=== PATIENT | female | born 1930 | race Caucasian/White ===

== ENCOUNTER 2016-11-25 17:33 | Inpatient (IN) | payer MEDICARE, BC ==
--- NOTE | 2016-11-25 17:38 | EDM.PDOC ---
ED HPI GENERAL MEDICAL PROBLEM - General Chief Complaint: Abdominal Pain Stated Complaint: PT HAS STOMACH PAINS Time Seen by Provider: 11/25/16 17:33 Source of Information: Reports: Patient History Limitations: Reports: No limitations - History of Present Illness INITIAL COMMENTS - FREE TEXT/NARRATIVE: HISTORY AND PHYSICAL: History of present illness: [Patient comes to the emergency room via ambulance. Son Is present at the bedside. She lives independently in her home. She complains of severe lower abdominal pain and pain in her low back. The pain came on suddenly at 1 PM today. Normally has a bowel movement every day but today was only able to pass a very small amount of stool. She's currently taking hydrocodone for osteoarthritis. Son admits that she does not eat or drink very much during the day. [employer] has brought the patient meals in the past but she doesn't like them and refuses to eat them. In the past, she has refused assisted living and short- term stay at [facility]. She has not had fever or chills. She has not had recent illness or infection. Denies recent falls and injuries. No chest pain shortness of breath or difficulty breathing. History of appendectomy and right total hip replacement. History of osteoarthritis, peripheral neuropathy, pacemaker, GERD, anxiety and depression. ] Review of systems: As per history of present illness and below otherwise all systems reviewed and negative. Past medical history: As per history of present illness and as reviewed below otherwise noncontributory. Surgical history: As per history of present illness and as reviewed below otherwise noncontributory. Social history: No reported history of drug or alcohol abuse. Family history: As per history of present illness and as reviewed below otherwise noncontributory. Physical exam: General: Well-developed, cachectic in appearance, frail elderly female in no acute distress. HEENT: Atraumatic, normocephalic. Oral mucous membranes are pink but dry. negative for conjunctival pallor or scleral icterus. Lungs: Clear to auscultation, breath sounds equal bilaterally. Heart: S1S2, regular rate rhythm. Abdomen: Bowel sounds are present in all 4 quadrants but quiet. Abdomen soft and nondistended. She is tender with palpation over entire lower abdomen. No masses guarding or rebound. Pelvis: Stable nontender. Genitourinary: Deferred. Rectal: Deferred. Extremities: Atraumatic, no swelling or cyanosis of feet or lower legs. Neurovascular unremarkable. Neuro: Awake, alert, oriented. Motor and sensory unremarkable throughout. Exam nonfocal. Diagnostics: [CBC, CMP, UA, abdominal x-ray, CT abdomen and pelvis without contrast] Therapeutics: [1 L normal saline IV, Zofran 4 mg IV, morphine 2 mg IV x 2 doses, Dilaudid 0.5 mg IV] Impression: [Abdominal pain] Plan: [Lab work is largely unremarkable other than a moderate amount of blood in her urinalysis. Abdominal x-ray shows gas but no obstruction. Abdominal CT shows no kidney stones or hydronephrosis. Colonic diverticulosis and constipation is appreciated on CT of abdomen. Patient's care is reviewed with the hospitalist. Patient will be admitted to the medical surgical floor under the care of Dr. Amor. This is discussed with patient and her family. All of their questions are answered and concerns are addressed. Definitive disposition and diagnosis as appropriate pending reevaluation and review of above. Abdominal Pain Score (Numeric/FACES): 10 - Related Data Allergies Allergy/AdvReac Type Severity Reaction Status Date / Time No Known Allergies Allergy Verified 11/25/16 17:38 Home Meds: Home Meds Gabapentin [Neurontin] 100 mg PO QID 09/15/14 [History] Hydrocodone/Acetaminophen [Lortab 5-325 mg Tablet] 1 tab PO Q6H PRN 09/15/14 [ History] Aspirin [Adult Low Dose Aspirin EC] 81 mg PO DAILY 03/27/15 [History] Erythromycin Base [Erythromycin 0.5% Ophth Oint] 1 applic OP Q12H 03/27/15 [ History] Polyethylene Glycol 3350 [Gavilax] 8.5 gm PO DAILY 03/27/15 [History] Sertraline [Zoloft] 50 mg PO DAILY 03/27/15 [History] Cholecalciferol (Vitamin D3) [Vitamin D3] 1,000 units PO DAILY 03/19/16 [History ] Acetaminophen [Tylenol] 650 mg PO Q4H PRN #0 tablet 03/23/16 [Rx] Ibuprofen [Motrin] 200 mg PO BID tablet 03/23/16 [Rx] Nitroglycerin [IJP: Nitroglycerin] 0.4 mg SL Q5M PRN #1 bottle 03/23/16 [Rx] Simethicone 80 mg PO TID PRN #0 tab.chew 03/23/16 [Rx] Metoprolol Succinate [Toprol XL] 1 tab PO DAILY 11/25/16 [History] Past Medical History HEENT History: Reports: Other (see below) Other HEENT History: Dry Eye Cardiovascular History: Reports: Pacemaker Respiratory History: Reports: None Gastrointestinal History: Reports: GERD 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: Musculoskeletal History: Reports: Osteoarthritis, RA Neurological History: Reports: Neuropathy, peripheral Psychiatric History: Reports: Anxiety, Depression Hematologic History: Reports: None Oncologic (Cancer) History: Reports: None - Infectious Disease History Infectious Disease History: Reports: Chicken pox, Influenza, Measles - Past Surgical History Other Musculoskeletal Surgeries/Procedures:: right hip replacement Social & Family History - Family History Family Medical History: Noncontributory HEENT: Reports: Impaired vision Cardiac: Reports: [place] Oncologic: Reports: Colon - Tobacco Use Smoking Status *Q: Never Smoker Second Hand Smoke Exposure: No - Alcohol Use Days Per Week of Alcohol Use: 0 - Recreational Drug Use Recreational Drug Use: No ED ROS GENERAL - Review of Systems Review Of Systems: ROS reveals no pertinent complaints other than HPI. ED EXAM, GENERAL - Physical Exam Exam: See Below Course - Vital Signs Last Recorded V/S: Last Vital Signs Temp 97.5 F 11/25/16 20:43 Pulse 65 11/25/16 20:43 Resp 20 11/25/16 20:43 BP 139/63 11/25/16 20:43 Pulse Ox 92 L 11/25/16 20:43 - Orders/Labs/Meds Orders: Active Orders 24 hr Category Date Time Status Abdomen 2V AP Flat Upright [CR] Stat Exams 11/25/16 17:35 Taken Abdomen Pelvis wo Cont [CT] Stat Exams 11/25/16 20:12 Ordered HYDROmorphone [Dilaudid] Med 11/25/16 21:34 Once 0.5 mg IVPUSH ONETIME ONE Sodium Chloride 0.9% [Normal Saline] 1,000 ml Med 11/25/16 18:43 Active IV STAT Medication Orders Sodium Chloride (Normal Saline) 1,000 mls @ 250 mls/hr IV STAT ONE Stop: 11/25/16 22:42 Last Admin: 11/25/16 19:12 Dose: 250 mls/hr Labs: Laboratory Tests 11/25/16 11/25/16 11/25/16 Range/Units 17:52 17:52 17:52 WBC 8.35 (4.0-11.0) K/uL RBC 3.95 L (4.30-5.90) M/uL Hgb 12.4 (12.0-16.0) g/dL Hct 37.2 (36.0-46.0) % MCV 94.2 (80.0-98.0) fL MCH 31.4 (27.0-32.0) pg MCHC 33.3 (31.0-37.0) g/dL RDW Std Deviation 46.4 (28.0-62.0) fl RDW Coeff of Lissa 13 (11.0-15.0) % Plt Count 234 (150-400) K/uL MPV 8.90 (7.40-12.00) fL Neut % (Auto) 77.9 (48.0-80.0) % Lymph % (Auto) 14.7 L (16.0-40.0) % Faulkner % (Auto) 4.9 (0.0-15.0) % Eos % (Auto) 1.8 (0.0-7.0) % Baso % (Auto) 0.7 (0.0-1.5) % Neut # 6.5 H (1.4-5.7) K/uL Lymph # 1.2 (0.6-2.4) K/uL Faulkner # 0.4 (0.0-0.8) K/uL Eos # 0.2 (0.0-0.7) K/uL Baso # 0.1 (0.0-0.1) K/uL Nucleated RBC % 0.0 /100WBC Nucleated RBCs # 0 K/uL Sodium 139 (136-146) mmol/L Potassium 4.3 (3.5-5.1) mmol/L Chloride 108 (98-110) mmol/L Carbon Dioxide 23 (21-31) mmol/L BUN 16 (6.0-23.0) mg/dL Creatinine 0.7 (0.6-1.5) mg/dL Est Cr Clr Drug Dosing 39.78 mL/min Estimated GFR (MDRD) > 60.0 ml/min Glucose 137 H (60-110) mg/dL Calcium 9.0 (8.8-10.8) mg/dL Total Bilirubin 0.5 (0.1-1.5) mg/dL AST 25 (5-40) IU/L ALT 15 (8-54) IU/L Alkaline Phosphatase 63 (40-150) Total Protein 7.1 (6.0-8.0) g/dL Albumin 3.6 (3.4-4.8) g/dL Globulin 3.5 (2.0-3.5) g/dL Albumin/Globulin Ratio 1.0 L (1.3-2.8) Amylase 47 (10-90) U/L Lipase 23 (7-80) U/L Urine Color Urine Appearance Urine pH (5.0-8.0) Ur Specific Bosworth (1.001-1.035) Urine Protein (NEGATIVE) mg/dL Urine Glucose (UA) (NEGATIVE) mg/dL Urine Ketones (NEGATIVE) mg/dL Urine Occult Blood (NEGATIVE) Urine Nitrite (NEGATIVE) Urine Bilirubin (NEGATIVE) Urine Urobilinogen (<2.0) EU/dL Ur Leukocyte Esterase (NEGATIVE) Urine RBC (0-2/HPF) Urine WBC (0-5/HPF) Ur Epithelial Cells (NONE-FEW) Urine Bacteria (NEGATIVE) Hyaline Casts (0-2/LPF) Urine Mucus (NONE-MOD) 11/25/16 Range/Units 19:35 WBC (4.0-11.0) K/uL RBC (4.30-5.90) M/uL Hgb (12.0-16.0) g/dL Hct (36.0-46.0) % MCV (80.0-98.0) fL MCH (27.0-32.0) pg MCHC (31.0-37.0) g/dL RDW Std Deviation (28.0-62.0) fl RDW Coeff of Lissa (11.0-15.0) % Plt Count (150-400) K/uL MPV (7.40-12.00) fL Neut % (Auto) (48.0-80.0) % Lymph % (Auto) (16.0-40.0) % Faulkner % (Auto) (0.0-15.0) % Eos % (Auto) (0.0-7.0) % Baso % (Auto) (0.0-1.5) % Neut # (1.4-5.7) K/uL Lymph # (0.6-2.4) K/uL Faulkner # (0.0-0.8) K/uL Eos # (0.0-0.7) K/uL Baso # (0.0-0.1) K/uL Nucleated RBC % /100WBC Nucleated RBCs # K/uL Sodium (136-146) mmol/L Potassium (3.5-5.1) mmol/L Chloride (98-110) mmol/L Carbon Dioxide (21-31) mmol/L BUN (6.0-23.0) mg/dL Creatinine (0.6-1.5) mg/dL Est Cr Clr Drug Dosing mL/min Estimated GFR (MDRD) ml/min Glucose (60-110) mg/dL Calcium (8.8-10.8) mg/dL Total Bilirubin (0.1-1.5) mg/dL AST (5-40) IU/L ALT (8-54) IU/L Alkaline Phosphatase (40-150) Total Protein (6.0-8.0) g/dL Albumin (3.4-4.8) g/dL Globulin (2.0-3.5) g/dL Albumin/Globulin Ratio (1.3-2.8) Amylase (10-90) U/L Lipase (7-80) U/L Urine Color YELLOW Urine Appearance CLEAR Urine pH 5.5 (5.0-8.0) Ur Specific Bosworth 1.025 (1.001-1.035) Urine Protein NEGATIVE (NEGATIVE) mg/dL Urine Glucose (UA) NEGATIVE (NEGATIVE) mg/dL Urine Ketones NEGATIVE (NEGATIVE) mg/dL Urine Occult Blood MODERATE (NEGATIVE) Urine Nitrite NEGATIVE (NEGATIVE) Urine Bilirubin NEGATIVE (NEGATIVE) Urine Urobilinogen 0.2 (<2.0) EU/dL Ur Leukocyte Esterase NEGATIVE (NEGATIVE) Urine RBC 2-5 (0-2/HPF) Urine WBC NONE SEEN (0-5/HPF) Ur Epithelial Cells FEW (NONE-FEW) Urine Bacteria FEW (NEGATIVE) Hyaline Casts 4-6 (0-2/LPF) Urine Mucus LIGHT (NONE-MOD) Meds: Medications Generic Name Dose Route Start Last Admin Trade Name Freq PRN Reason Stop Dose Admin Sodium Chloride 1,000 mls @ 250 mls/hr 11/25/16 18:43 11/25/16 19:12 Normal Saline IV 11/25/16 22:42 250 mls/hr STAT ONE Administration Discontinued Medications Generic Name Dose Route Start Last Admin Trade Name Vikram HENAON Reason Stop Dose Admin Sodium Chloride 1,000 mls @ 999 mls/hr 11/25/16 17:55 11/25/16 18:31 Normal Saline IV 11/25/16 18:55 999 mls/hr STAT ONE Administration Morphine Sulfate 2 mg 11/25/16 17:55 11/25/16 18:26 Morphine IVPUSH 11/25/16 17:56 2 mg ONETIME ONE Administration Morphine Sulfate 2 mg 11/25/16 19:16 11/25/16 19:20 Morphine IVPUSH 11/25/16 19:17 2 mg ONETIME ONE Administration Ondansetron HCl 4 mg 11/25/16 17:55 11/25/16 18:22 Zofran IVPUSH 11/25/16 17:56 4 mg ONETIME ONE Administration Departure - Departure Time of Disposition: 21:36 Disposition: Admitted As Inpatient 64 Condition: fair Clinical Impression: Abdominal pain Qualifiers: Abdominal location: lower abdomen, unspecified Qualified Code(s): R10.30 - Lower abdominal pain, unspecified Constipation Qualifiers: Constipation type: unspecified constipation type Qualified Code(s): K59.00 - Constipation, unspecified - My Orders Last 24 Hours: My Active Orders 11/25/16 17:35 Abdomen 2V AP Flat Upright [CR] Stat 11/25/16 18:43 Sodium Chloride 0.9% [Normal Saline] 1,000 ml IV STAT 11/25/16 20:12 Abdomen Pelvis wo Cont [CT] Stat 11/25/16 21:34 HYDROmorphone [Dilaudid] 0.5 mg IVPUSH ONETIME ONE - Assessment/Plan Last 24 Hours: My Active Orders 11/25/16 17:35 Abdomen 2V AP Flat Upright [CR] Stat 11/25/16 18:43 Sodium Chloride 0.9% [Normal Saline] 1,000 ml IV STAT 11/25/16 20:12 Abdomen Pelvis wo Cont [CT] Stat 11/25/16 21:34 HYDROmorphone [Dilaudid] 0.5 mg IVPUSH ONETIME ONE
[2016-11-25] MEDS ORDERED: Morphine 2 MG/ML Syringe IVPUSH ONE ×2 (17:55→19:16)
[2016-11-25] MEDS ORDERED: Ondansetron 4 MG/2 ML SDV IVPUSH ONE ×2 (17:55→21:47)
[2016-11-25] MEDS ORDERED: Sodium Chloride 0.9% 1,000 ML IV ONE ×2 (17:55→18:43)
[2016-11-25 18:24] LABS: CHLORIDE,CL 108 mmol/L (98-110); SODIUM,NA 139 mmol/L (136-146)
[2016-11-25] MEDS ORDERED: HYDROmorphone 1 MG/ML Syringe IVPUSH ONE (21:34)
[2016-11-25] MEDS: Sodium Chloride 0.45% 1,000 ML IV SCH (23:28)
[2016-11-26] MEDS: Pantoprazole 40 MG in Sodium Chloride 0.9% 10 ML IVPUSH SCH ×2 (00:09→22:21)
[2016-11-26] MEDS: Morphine 2 MG/ML Syringe IVPUSH PRN ×4 (00:20→08:18)
[2016-11-26] MEDS: Ondansetron 4 MG/2 ML SDV IVPUSH PRN ×5 (02:45→20:08)
[2016-11-26] MEDS: Polyethylene Glycol 3350 Powder 17 GM Packet PO PRN (05:04)
[2016-11-26 07:08] LABS: CHLORIDE,CL 109 mmol/L (98-110); SODIUM,NA 139 mmol/L (136-146)
[2016-11-26] MEDS: Docusate Sodium 100 MG Cap PO SCH ×2 (09:08→20:10)
--- NOTE | 2016-11-26 12:07 | PCM.HP ---
H&P History of Present Illness - General Date of Service: 11/26/16 Admit Problem/Dx: Admission Diagnosis/Problem Admission Diagnosis/Problem Abdominal pain - History of Present Illness Initial Comments - Free Text/Narative: 86 yo female admitted for abdominal pain. She has been having decreased appetite past few days with nausea and diffuse abdominal pain. She has been loosing weight for five years. She lives by herself and independent. The family noticed she has not been eating much. Her meals are still in the fridge. She describes the pain diffusely in the abdomen. She does not recall when her last BM was. In the ED. Abdominal xray did not reveal bowel obstruction. Abdominal CT without contrast shows constipation, new pulmonary nodule, small amount of air in the the bladder and cardiomegaly. On admission her wbc was elevated from 8.3 to 11.5. UA shows moderate blood. Abdominal Pain Score (Numeric/FACES): 6 - Related Data Allergies/Adverse Reactions: Allergies Allergy/AdvReac Type Severity Reaction Status Date / Time Latex, Natural Rubber Allergy Rash Verified 11/25/16 22:18 Home Medications: Home Meds Gabapentin [Neurontin] 100 mg PO QID 09/15/14 [History] Hydrocodone/Acetaminophen [Lortab 5-325 mg Tablet] 1 tab PO Q6H PRN 09/15/14 [ History] Aspirin [Adult Low Dose Aspirin EC] 81 mg PO DAILY 03/27/15 [History] Erythromycin Base [Erythromycin 0.5% Ophth Oint] 1 applic OP Q12H 03/27/15 [ History] Polyethylene Glycol 3350 [Gavilax] 8.5 gm PO DAILY 03/27/15 [History] Sertraline [Zoloft] 50 mg PO DAILY 03/27/15 [History] Cholecalciferol (Vitamin D3) [Vitamin D3] 1,000 units PO DAILY 03/19/16 [History ] Acetaminophen [Tylenol] 650 mg PO Q4H PRN #0 tablet 03/23/16 [Rx] Ibuprofen [Motrin] 200 mg PO BID tablet 03/23/16 [Rx] Nitroglycerin [IJP: Nitroglycerin] 0.4 mg SL Q5M PRN #1 bottle 03/23/16 [Rx] Simethicone 80 mg PO TID PRN #0 tab.chew 03/23/16 [Rx] Metoprolol Succinate [Toprol XL] 1 tab PO DAILY 11/25/16 [History] Past Medical History HEENT History: Reports: Hard of hearing, Other (see below) Other HEENT History: Dry Eye Cardiovascular History: Reports: Pacemaker Respiratory History: Reports: None Gastrointestinal History: Reports: GERD 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: Musculoskeletal History: Reports: Osteoarthritis, RA Neurological History: Reports: Neuropathy, peripheral Psychiatric History: Reports: Anxiety, Depression Endocrine/Metabolic History: Reports: None Hematologic History: Reports: None Immunologic History: Reports: None Oncologic (Cancer) History: Reports: None Dermatologic History: Reports: None - Infectious Disease History Infectious Disease History: Reports: Chicken pox, Influenza, Measles - Past Surgical History Head Surgeries/Procedures: Reports: None Other Musculoskeletal Surgeries/Procedures:: right hip replacement Social & Family History - Family History Family Medical History: Noncontributory HEENT: Reports: Impaired vision Cardiac: Reports: [place] Oncologic: Reports: Colon - Tobacco Use Smoking Status *Q: Never Smoker Second Hand Smoke Exposure: No - Caffeine Use Caffeine Use: Reports: Coffee, Tea - Alcohol Use Days Per Week of Alcohol Use: 0 - Recreational Drug Use Recreational Drug Use: No H&P Review of Systems - Review of Systems: Review Of Systems: See Below General: Reports: no symptoms HEENT: Reports: no symptoms Pulmonary: Reports: no symptoms Cardiovascular: Reports: no symptoms Gastrointestinal: Reports: Abdominal pain, Constipation, Flatus, Nausea, Vomiting Genitourinary: Reports: no symptoms Musculoskeletal: Reports: no symptoms Skin: Reports: no symptoms Psychiatric: Reports: no symptoms Neurological: Reports: no symptoms Exam - Exam Exam: See Below - Vital Signs Vital Signs: Last Vital Signs Temp 97.7 F 11/26/16 08:00 Pulse 70 11/26/16 08:00 Resp 20 11/26/16 08:00 BP 127/68 11/26/16 08:00 Pulse Ox 96 11/26/16 08:00 Weight: 42.5 kg - Exam General: alert, oriented HEENT: Conjunctiva clear, EOMI Neck: supple, trachea midline Lungs: Decreased breath sounds Cardiovascular: regular rate, regular rhythm Abdomen: normal bowel sounds, soft, tenderness. No: guarding, rigidity, rebound Back Exam: normal inspection Extremities: normal inspection Skin: warm, dry, intact - Patient Data Lab Results last 24 hrs: Laboratory Results - last 24 hr 11/26/16 11/26/16 Range/Units 06:21 06:21 WBC 11.41 H (4.0-11.0) K/uL RBC 4.05 L (4.30-5.90) M/uL Hgb 12.8 (12.0-16.0) g/dL Hct 38.2 (36.0-46.0) % MCV 94.3 (80.0-98.0) fL MCH 31.6 (27.0-32.0) pg MCHC 33.5 (31.0-37.0) g/dL RDW Std Deviation 46.2 (28.0-62.0) fl RDW Coeff of Lissa 13 (11.0-15.0) % Plt Count 228 (150-400) K/uL MPV 9.00 (7.40-12.00) fL Neut % (Auto) 86.8 H (48.0-80.0) % Lymph % (Auto) 8.2 L (16.0-40.0) % Floyd % (Auto) 4.6 (0.0-15.0) % Eos % (Auto) 0.1 (0.0-7.0) % Baso % (Auto) 0.3 (0.0-1.5) % Neut # 9.9 H (1.4-5.7) K/uL Lymph # 0.9 (0.6-2.4) K/uL Floyd # 0.5 (0.0-0.8) K/uL Eos # 0.0 (0.0-0.7) K/uL Baso # 0.0 (0.0-0.1) K/uL Nucleated RBC % 0.0 /100WBC Nucleated RBCs # 0 K/uL Sodium 139 (136-146) mmol/L Potassium 4.4 (3.5-5.1) mmol/L Chloride 109 (98-110) mmol/L Carbon Dioxide 23 (21-31) mmol/L BUN 14 (6.0-23.0) mg/dL Creatinine 0.6 (0.6-1.5) mg/dL Est Cr Clr Drug Dosing 43.48 mL/min Estimated GFR (MDRD) > 60.0 ml/min Glucose 108 (60-110) mg/dL Calcium 8.6 L (8.8-10.8) mg/dL Total Bilirubin 0.7 (0.1-1.5) mg/dL AST 24 (5-40) IU/L ALT 14 (8-54) IU/L Alkaline Phosphatase 58 (40-150) Total Protein 6.0 (6.0-8.0) g/dL Albumin 3.2 L (3.4-4.8) g/dL Globulin 2.8 (2.0-3.5) g/dL Albumin/Globulin Ratio 1.1 L (1.3-2.8) Result Diagrams: 11/26/16 06:21 11/26/16 06:21 *Q Meaningful Use (ADM) - VTE *Q VTE Criteria *Q: - Stroke *Q Stroke Criteria *Q: - AMI *Q AMI Criteria *Q: Problem List Initiated/Reviewed/Updated: Yes Orders Last 24hrs: Active Orders 24 hr Category Date Time Status Admission Status [Patient Status] [ADT] Routine ADT 11/25/16 22:55 Active Antiembolic Devices [RC] PER UNIT ROUTINE Care 11/25/16 23:02 Active 2 Gram Sodium Diet [DIET] Diet 11/26/16 Breakfast Active URINALYSIS W/MICROSCOPIC [UA W/MICROSCOPIC] [URIN] Lab 11/26/16 04:12 Uncollected Routine Docusate Sodium [Colace] Med 11/26/16 09:00 Active 200 mg PO BID Morphine Med 11/25/16 23:15 Active 2 mg IVPUSH Q2H PRN Ondansetron [Zofran] Med 11/25/16 23:17 Active 4 mg IVPUSH Q4H PRN Pantoprazole [Protonix IV] 40 mg Med 11/25/16 23:15 Active Sodium Chloride 0.9% [Normal Saline] 10 ml IVPUSH Q24H Polyethylene Glycol 3350 [MiraLAX] Med 11/25/16 23:04 Active 17 gm PO DAILY PRN Sodium Chloride 0.45% 1,000 ml Med 11/25/16 23:00 Active IV ASDIRECTED SCD [Sequential Compression Device] [OM.PC] Routine Oth 11/25/16 23:01 Ordered Medication Orders Docusate Sodium (Colace) 200 mg PO BID GIULIANO Last Admin: 11/26/16 09:08 Dose: 200 mg Pantoprazole Sodium 40 mg/ (Sodium Chloride) 10 mls @ 300 mls/hr IVPUSH Q24H GIULIANO Last Admin: 11/26/16 00:09 Dose: 300 mls/hr Sodium Chloride (Sodium Chloride 0.45%) 1,000 mls @ 50 mls/hr IV ASDIRECTED [facility] Last Admin: 11/25/16 23:28 Dose: 50 mls/hr Morphine Sulfate (Morphine) 2 mg IVPUSH Q2H PRN PRN Reason: Pain Last Admin: 11/26/16 08:18 Dose: 2 mg Admin: 11/26/16 05:09 Dose: 2 mg Admin: 11/26/16 02:45 Dose: 2 mg Admin: 11/26/16 00:20 Dose: 2 mg Ondansetron HCl (Zofran) 4 mg IVPUSH Q4H PRN PRN Reason: Nausea/Vomiting Last Admin: 11/26/16 07:25 Dose: 4 mg Admin: 11/26/16 02:45 Dose: 4 mg Polyethylene Glycol (Miralax) 17 gm PO DAILY PRN PRN Reason: Constipation Last Admin: 11/26/16 05:04 Dose: 17 gm Assessment/Plan Comment:: 86 yo female admitted for abdominal pain increase IVF to 100 ml /hr elevated WBC: start cipro and flagyl repeat abdominal Xray DC morphine Fleet enema with mineral oil zofran prn for nausea BMI 18.3: Start remeron for decreased appetite:
[2016-11-26] MEDS ORDERED: Ciprofloxacin in D5W 400 MG in Premix Bag 1 BAG IV SCH ×2 (12:45)
--- NOTE | 2016-11-26 14:48 | CR ---
EXAM DATE: 11/25/16 PATIENT'S AGE: 86 Patient: FATEMEH ABRAMS Facility: [place], [place] Site . Site : 1930 Study: XRay Abdomen [id number]/8/[id number] 7:11:25 PM Ordering Physician: Doctor Brewer Final Report: HISTORY: Lower abdominal pain. TECHNIQUE: Flat and upright abdominal radiographs. COMPARISON: No prior. FINDINGS: There is no free intraperitoneal air. Gas present within small bowel and colon. While nonspecific, the bowel gas pattern is not highly suggestive of a bowel obstruction. Pacer device with leads terminating within the right atrium and right ventricle. Lung bases appear clear. Degenerative changes of the spine. Prior right hip replacement. IMPRESSION: Gas present within small bowel and colon. While nonspecific, the bowel gas pattern is not highly suggestive of a bowel obstruction. No free air. Dictated by Otilio Chen MD @ 11/25/2016 7:22:26 PM Dictated by: Otilio Chen MD @ 11/25/2016 19:22:47 (Electronic Signature) Report Signed by Proxy and Original Signed Document filed in the Medical Record. [facility]PITALB[facility]
--- NOTE | 2016-11-26 14:49 | CT ---
EXAM DATE: 11/25/16 PATIENT'S AGE: 86 Patient: FATEMEH ABRAMS Facility: [place], [place] Site . Site : 1930 Study: CT Abdomen/Pelvis [id number]/8/[id number] 8:38:09 PM Ordering Physician: Doctor Brewer Final Report: INDICATION: Pain, hematuria TECHNIQUE: CT abdomen and pelvis without contrast. COMPARISON: September 15, 2014 FINDINGS: Lower chest: Cardiomegaly. Pacer wires partially visualized. Trace pericardial effusion. Small hiatal hernia. Emphysema. New pulmonary nodule in the right lower lobe measuring 0.5 cm, best seen on image 22 series 202. There are also a few scattered parenchymal and subpleural nodules in the lungs which appear unchanged compared to September 15, 2014. Liver: Unremarkable. Spleen: Unremarkable. Pancreas: Unremarkable. Gallbladder and bile ducts: Unremarkable. Adrenal glands: Unremarkable. Kidneys: Evaluation of the distal ureters and urinary bladder is limited due to streak artifact from right hip arthroplasty. No kidney or ureteral stones and no hydronephrosis. Simple cyst superior pole left kidney. GI tract: Colonic diverticulosis. Large amount of stool within the colon. Vascular structures: Heavy vascular calcifications. Lymph nodes: Unremarkable. Miscellaneous: Unremarkable. No free air or significant free fluid. Pelvic Organs: There is a small amount of air within the urinary bladder. Bones: Postoperative changes of a right hip arthroplasty. Degenerative changes within the spine and the left hip joint. IMPRESSION: 1. No hydronephrosis. Evaluation of the distal ureters is limited due to streak artifact from right hip. Arthroplasty hardware. 2. Small amount of air in the bladder may be secondary to infection or recent instrumentation. 3. Constipation. 4. Colonic diverticulosis. 5. New right lower lobe pulmonary nodule. Followup per Fleischner society guidelines recommended, as listed below. 6. Cardiomegaly. 7. Small hiatal hernia. 8. Emphysema. Fleischner Society Guidelines: Nodule Size (mm)*: Less than or equal to 4 Low Risk Patient1: No follow-up needed3 High Risk Patient2: Follow-up CT at 12 months; if unchanged, no further follow- up4 Nodule Size (mm)*: Greater than 4 - 6 Low Risk Patient1: Follow-up CT at 12 months; if unchanged, no further follow- up4 High Risk Patient2: Initial follow-up CT at 6-12 months then at 18-24 months if no change4 Nodule Size (mm)*: Greater than 6 - 8 Low Risk Patient1: Initial follow-up CT at 6-12 months then at 18-24 months if no change High Risk Patient2: Initial CT at 3-6 months then at 9-12 and 24 months if no change Nodule Size (mm)*: Greater than 8 Low Risk Patient1: Follow-up CT at around 3, 9 and 24 months, dynamic contrast- enhanced CT, PET and/or biopsy High Risk Patient2: Same as for low risk patient 4 Note: Newly detected indeterminate nodule in persons 35 years of age or older. * Average length and width. 1 Minimal or absent history of smoking and of other known risk factors. 2 History of smoking or of other known risk factors. 3 The risk of malignancy in this category (Less than 1%) is substantially less than that in a baseline CT scan of an asymptomatic smoker. 4 Non-solid (ground-glass) or partly solid nodules may require longer follow-up to exclude indolent adenocarcinoma. Dictated by Lola Ness MD @ Nov 25 2016 8:50PM (Electronic Signature) Report Signed by Proxy and Original Signed Document filed in the Medical Record. [facility]
[2016-11-26] MEDS ORDERED: Ondansetron 4 MG/2 ML SDV IVPUSH ONE (15:36)
[2016-11-26] MEDS ORDERED: Benzocaine 20% Topical Spray UD MUCMEM ONE ×2 (16:37→16:40)
--- NOTE | 2016-11-26 16:57 | CR ---
EXAM DATE: 11/25/16 PATIENT'S AGE: 86 Patient: FATEMEH ABRAMS Facility: [place], [place] Site . Site : 1930 Study: XRay Abdomen [id number]/9/2017 1:29:50 PM Ordering Physician: Zuleyma Turner Final Report: Indication: Abdomen pain Technique: Abdomen 3 view. Comparison: Abdominal radiographs and CT abdomen and pelvis November 25, 2016. Findings: Bowel: Moderate gaseous distension of central small bowel loops. Colon is decompressed. No significant colonic stool. Soft tissues: No sign of free air. No sign of soft tissue mass. No suspicious calcifications. Bones: Unremarkable for age. Impression: Bowel pattern is consistent with either a regional small-bowel ileus or small bowel obstruction. Dictated by Cristian Hill MD @ Nov 26 2016 1:57PM (Electronic Signature) Report Signed by Proxy and Original Signed Document filed in the Medical Record. [facility]
--- NOTE | 2016-11-26 17:25 | PCM.CONS ---
<Jamilah Farnsworth - Last Filed: 11/26/16 17:20> H&P History of Present Illness - General Date of Service: 11/26/16 Admit Problem/Dx: Admission Diagnosis/Problem Admission Diagnosis/Problem Abdominal pain Source of Information: Patient, Family - History of Present Illness Initial Comments - Free Text/Narative: Patient admitted for abdominal pain. Per patient she started having diffused abdominal pain since Wednesday. Her last bowel movement and passed flatus this past Wednesday. Per report she is not eating well. She had some nausea and emesis while inpatient. CT scan revealed dilated small bowel and colon with stool. Attempted NGT placement and also attempted OGT. However, patient began to gag and discontinued due to concerns of aspiration. Patient abdominal surgeries include appendectomy. Abdominal Pain Score (Numeric/FACES): 6 - Related Data Allergies/Adverse Reactions: Allergies Allergy/AdvReac Type Severity Reaction Status Date / Time Latex, Natural Rubber Allergy Rash Verified 11/25/16 22:18 Home Medications: Home Meds Gabapentin [Neurontin] 100 mg PO QID 09/15/14 [History] Hydrocodone/Acetaminophen [Lortab 5-325 mg Tablet] 1 tab PO Q6H PRN 09/15/14 [ History] Aspirin [Adult Low Dose Aspirin EC] 81 mg PO DAILY 03/27/15 [History] Erythromycin Base [Erythromycin 0.5% Ophth Oint] 1 applic OP Q12H 03/27/15 [ History] Polyethylene Glycol 3350 [Gavilax] 8.5 gm PO DAILY 03/27/15 [History] Sertraline [Zoloft] 50 mg PO DAILY 03/27/15 [History] Cholecalciferol (Vitamin D3) [Vitamin D3] 1,000 units PO DAILY 03/19/16 [History ] Acetaminophen [Tylenol] 650 mg PO Q4H PRN #0 tablet 03/23/16 [Rx] Ibuprofen [Motrin] 200 mg PO BID tablet 03/23/16 [Rx] Nitroglycerin [IJP: Nitroglycerin] 0.4 mg SL Q5M PRN #1 bottle 03/23/16 [Rx] Simethicone 80 mg PO TID PRN #0 tab.chew 03/23/16 [Rx] Metoprolol Succinate [Toprol XL] 1 tab PO DAILY 11/25/16 [History] Past Medical History HEENT History: Reports: Hard of hearing, Other (see below) Other HEENT History: Dry Eye Cardiovascular History: Reports: Pacemaker Respiratory History: Reports: None Gastrointestinal History: Reports: G[employer] History: Reports: Musculoskeletal History: Reports: Osteoarthritis, RA Neurological History: Reports: Neuropathy, peripheral Psychiatric History: Reports: Anxiety, Depression Endocrine/Metabolic History: Reports: None Hematologic History: Reports: None Immunologic History: Reports: None Oncologic (Cancer) History: Reports: None Dermatologic History: Reports: None - Infectious Disease History Infectious Disease History: Reports: Chicken pox, Influenza, Measles - Past Surgical History Head Surgeries/Procedures: Reports: None Other Musculoskeletal Surgeries/Procedures:: right hip replacement Social & Family History - Family History Family Medical History: Noncontributory HEENT: Reports: Impaired vision Cardiac: Reports: [place] Oncologic: Reports: Colon - Tobacco Use Smoking Status *Q: Never Smoker Second Hand Smoke Exposure: No - Caffeine Use Caffeine Use: Reports: Coffee, Tea - Alcohol Use Days Per Week of Alcohol Use: 0 - Recreational Drug Use Recreational Drug Use: No H&P Review of Systems - Review of Systems: Review Of Systems: See Below General: Reports: decreased appetite HEENT: Reports: no symptoms Pulmonary: Reports: no symptoms Cardiovascular: Reports: no symptoms Gastrointestinal: Reports: Abdominal pain, Constipation, Decreased appetite, Nausea, Vomiting Genitourinary: Reports: no symptoms Musculoskeletal: Reports: no symptoms Skin: Reports: no symptoms Psychiatric: Reports: no symptoms Neurological: Reports: no symptoms Exam - Exam Exam: See Below - Vital Signs Vital Signs: Last Vital Signs Temp 36.6 C 11/26/16 16:00 Pulse 71 11/26/16 16:00 Resp 22 H 11/26/16 16:00 BP 117/59 L 11/26/16 16:00 Pulse Ox 98 11/26/16 16:00 Weight: 93 lb 11.143 oz - Exam General: alert, oriented, cooperative HEENT: Conjunctiva clear, EOMI, Hearing intact, Mucosa moist & pink, Nares patent, Normal nasal septum, Pupils equal, Pupils reactive Neck: supple, trachea midline Lungs: Clear to auscultation, Normal respiratory effort Cardiovascular: regular rate, regular rhythm Abdomen: normal bowel sounds (mild tenderness in lower abdomen, no distension, no rebound tenderness, no guarding ), soft, hypoactive bowel sounds Neurological: cranial nerves intact - Patient Data Lab Results last 24 hrs: Laboratory Results - last 24 hr 11/26/16 11/26/16 11/26/16 Range/Units 06:21 06:21 12:40 WBC 11.41 H (4.0-11.0) K/uL RBC 4.05 L (4.30-5.90) M/uL Hgb 12.8 (12.0-16.0) g/dL Hct 38.2 (36.0-46.0) % MCV 94.3 (80.0-98.0) fL MCH 31.6 (27.0-32.0) pg MCHC 33.5 (31.0-37.0) g/dL RDW Std Deviation 46.2 (28.0-62.0) fl RDW Coeff of Lissa 13 (11.0-15.0) % Plt Count 228 (150-400) K/uL MPV 9.00 (7.40-12.00) fL Neut % (Auto) 86.8 H (48.0-80.0) % Lymph % (Auto) 8.2 L (16.0-40.0) % [place] % (Auto) 4.6 (0.0-15.0) % Eos % (Auto) 0.1 (0.0-7.0) % Baso % (Auto) 0.3 (0.0-1.5) % Neut # 9.9 H (1.4-5.7) K/uL Lymph # 0.9 (0.6-2.4) K/uL [place] # 0.5 (0.0-0.8) K/uL Eos # 0.0 (0.0-0.7) K/uL Baso # 0.0 (0.0-0.1) K/uL Nucleated RBC % 0.0 /100WBC Nucleated RBCs # 0 K/uL Sodium 139 (136-146) mmol/L Potassium 4.4 (3.5-5.1) mmol/L Chloride 109 (98-110) mmol/L Carbon Dioxide 23 (21-31) mmol/L BUN 14 (6.0-23.0) mg/dL Creatinine 0.6 (0.6-1.5) mg/dL Est Cr Clr Drug Dosing 43.48 mL/min Estimated GFR (MDRD) > 60.0 ml/min Glucose 108 (60-110) mg/dL Calcium 8.6 L (8.8-10.8) mg/dL Total Bilirubin 0.7 (0.1-1.5) mg/dL AST 24 (5-40) IU/L ALT 14 (8-54) IU/L Alkaline Phosphatase 58 (40-150) Total Protein 6.0 (6.0-8.0) g/dL Albumin 3.2 L (3.4-4.8) g/dL Globulin 2.8 (2.0-3.5) g/dL Albumin/Globulin Ratio 1.1 L (1.3-2.8) Urine Color YELLOW Urine Appearance CLEAR Urine pH 5.5 (5.0-8.0) Ur Specific [place] >= 1.030 (1.001-1.035) Urine Protein NEGATIVE (NEGATIVE) mg/dL Urine Glucose (UA) NEGATIVE (NEGATIVE) mg/dL Urine Ketones NEGATIVE (NEGATIVE) mg/dL Urine Occult Blood MODERATE (NEGATIVE) Urine Nitrite NEGATIVE (NEGATIVE) Urine Bilirubin NEGATIVE (NEGATIVE) Urine Urobilinogen 0.2 (<2.0) EU/dL Ur Leukocyte Esterase NEGATIVE (NEGATIVE) Urine RBC 4-6 (0-2/HPF) Urine WBC 1-2 (0-5/HPF) Ur Epithelial Cells FEW (NONE-FEW) Urine Bacteria FEW (NEGATIVE) Result Diagrams: 11/26/16 06:21 11/26/16 06:21 Consult PN Assessment/Plan Procedures: Procedures ASSAY OF AMYLASE (05/03/16) ASSAY OF CK (CPK) (05/03/16) ASSAY OF LACTIC ACID (01/25/15) ASSAY OF LIPASE (09/15/14) ASSAY OF MAGNESIUM (03/20/16) ASSAY OF NATRIURETIC PEPTIDE (01/25/15) ASSAY OF TROPONIN QUANT (05/03/16) ASSAY THYROID STIM HORMONE (03/20/16) CHEST X-RAY 1 VIEW FRONTAL (05/03/16) CHEST X-RAY 2VW FRONTAL&LATL (03/20/16) COMPLETE CBC W/AUTO DIFF WBC (05/03/16) COMPREHEN METABOLIC PANEL (05/03/16) CREATINE MB FRACTION (05/03/16) CT ABD & PELV W/CONTRAST (09/15/14) CT HEAD/BRAIN W/O DYE (03/20/16) CT LUMBAR SPINE W/DYE (11/28/15) ELECTROCARDIOGRAM TRACING (05/03/16) EMERGENCY DEPT VISIT (05/03/16) EMERGENCY DEPT VISIT (09/15/14) EMERGENCY DEPT VISIT (09/15/14) EVALUATE PT USE OF INHALER (01/25/15) FIBRIN DEGRADATION QUANT (03/20/16) GLUCOSE BLOOD TEST (03/20/16) HYDRATION IV INFUSION INIT (01/25/15) INJECTION FOR MYELOGRAM (11/28/15) METABOLIC PANEL TOTAL CA (03/20/16) MYELOGRAPHY L-S SPINE (11/28/15) PROTHROMBIN TIME (03/20/16) PT EVALUATION (03/20/16) ROUTINE VENIPUNCTURE (03/20/16) THER/PROPH/DIAG INJ IV PUSH (05/03/16) THERAPEUTIC ACTIVITIES (03/20/16) URINALYSIS AUTO W/SCOPE (03/20/16) X-RAY EXAM OF ANKLE (03/27/15) X-RAY EXAM OF HIP (03/27/15) X-RAY EXAM OF SHOULDER (03/27/15) X-RAY EXAM OF WRIST (03/27/15) Problem List Initiated/Reviewed/Updated: Yes Plan: Patient is an 86 yro female with h/o appendectomy, whom was admitted for abdominal pain. CT scan/abdominal xrays reveals large amount of stool in the colon and dilated small bowel. Patient unlikely has bowel obstruction. Patient likely has ileus 2/2 chronic constipation. No surgical intervention is indicated at this time. Recommend limiting narcotics, increase ambulation as tolerated, and increase bowel regimen. Continue cares per primary team. Patient was discussed and seen with Dr Valle. Jamilah Farnsworth MD PGY 2 surgery resident November 26, 2016 <Isauro Valle - Last Filed: 11/26/16 17:55> H&P History of Present Illness - General Admit Problem/Dx: Admission Diagnosis/Problem Admission Diagnosis/Problem Abdominal pain Past Medical History - Past Surgical History Cardiovascular Surgical History: Reports: Other (see below) (Dual chamber pacemaker) GI Surgical History: Reports: Appendectomy Exam - Vital Signs Vital Signs: Last Vital Signs Temp 97.8 F 11/26/16 16:00 Pulse 71 11/26/16 16:00 Resp 22 H 11/26/16 16:00 BP 117/59 L 11/26/16 16:00 Pulse Ox 98 11/26/16 16:00 - Exam Abdomen: other (Well healed appendectomy incision.). No: distention, guarding, rigidity, rebound, tenderness, abdominal bruit (Female) Exam: Deferred Rectal (Female) Exam: Deferred Skin: warm, dry, intact Neuro Extensive - Mental Status: alert, oriented x3, normal mood/affect Psychiatric: alert, normal affect (age appropriate) - Patient Data Lab Results last 24 hrs: Laboratory Results - last 24 hr 11/26/16 11/26/16 11/26/16 Range/Units 06:21 06:21 12:40 WBC 11.41 H (4.0-11.0) K/uL RBC 4.05 L (4.30-5.90) M/uL Hgb 12.8 (12.0-16.0) g/dL Hct 38.2 (36.0-46.0) % MCV 94.3 (80.0-98.0) fL MCH 31.6 (27.0-32.0) pg MCHC 33.5 (31.0-37.0) g/dL RDW Std Deviation 46.2 (28.0-62.0) fl RDW Coeff of Lissa 13 (11.0-15.0) % Plt Count 228 (150-400) K/uL MPV 9.00 (7.40-12.00) fL Neut % (Auto) 86.8 H (48.0-80.0) % Lymph % (Auto) 8.2 L (16.0-40.0) % [place] % (Auto) 4.6 (0.0-15.0) % Eos % (Auto) 0.1 (0.0-7.0) % Baso % (Auto) 0.3 (0.0-1.5) % Neut # 9.9 H (1.4-5.7) K/uL Lymph # 0.9 (0.6-2.4) K/uL [place] # 0.5 (0.0-0.8) K/uL Eos # 0.0 (0.0-0.7) K/uL Baso # 0.0 (0.0-0.1) K/uL Nucleated RBC % 0.0 /100WBC Nucleated RBCs # 0 K/uL Sodium 139 (136-146) mmol/L Potassium 4.4 (3.5-5.1) mmol/L Chloride 109 (98-110) mmol/L Carbon Dioxide 23 (21-31) mmol/L BUN 14 (6.0-23.0) mg/dL Creatinine 0.6 (0.6-1.5) mg/dL Est Cr Clr Drug Dosing 43.48 mL/min Estimated GFR (MDRD) > 60.0 ml/min Glucose 108 (60-110) mg/dL Calcium 8.6 L (8.8-10.8) mg/dL Total Bilirubin 0.7 (0.1-1.5) mg/dL AST 24 (5-40) IU/L ALT 14 (8-54) IU/L Alkaline Phosphatase 58 (40-150) Total Protein 6.0 (6.0-8.0) g/dL Albumin 3.2 L (3.4-4.8) g/dL Globulin 2.8 (2.0-3.5) g/dL Albumin/Globulin Ratio 1.1 L (1.3-2.8) Urine Color YELLOW Urine Appearance CLEAR Urine pH 5.5 (5.0-8.0) Ur Specific [place] >= 1.030 (1.001-1.035) Urine Protein NEGATIVE (NEGATIVE) mg/dL Urine Glucose (UA) NEGATIVE (NEGATIVE) mg/dL Urine Ketones NEGATIVE (NEGATIVE) mg/dL Urine Occult Blood MODERATE (NEGATIVE) Urine Nitrite NEGATIVE (NEGATIVE) Urine Bilirubin NEGATIVE (NEGATIVE) Urine Urobilinogen 0.2 (<2.0) EU/dL Ur Leukocyte Esterase NEGATIVE (NEGATIVE) Urine RBC 4-6 (0-2/HPF) Urine WBC 1-2 (0-5/HPF) Ur Epithelial Cells FEW (NONE-FEW) Urine Bacteria FEW (NEGATIVE) Result Diagrams: 11/26/16 06:21 11/26/16 06:21 Consult PN Assessment/Plan Procedures: Procedures ASSAY OF AMYLASE (05/03/16) ASSAY OF CK (CPK) (05/03/16) ASSAY OF LACTIC ACID (01/25/15) ASSAY OF LIPASE (09/15/14) ASSAY OF MAGNESIUM (03/20/16) ASSAY OF NATRIURETIC PEPTIDE (01/25/15) ASSAY OF TROPONIN QUANT (05/03/16) ASSAY THYROID STIM HORMONE (03/20/16) CHEST X-RAY 1 VIEW FRONTAL (05/03/16) CHEST X-RAY 2VW FRONTAL&LATL (03/20/16) COMPLETE CBC W/AUTO DIFF WBC (05/03/16) COMPREHEN METABOLIC PANEL (05/03/16) CREATINE MB FRACTION (05/03/16) CT ABD & PELV W/CONTRAST (09/15/14) CT HEAD/BRAIN W/O DYE (03/20/16) CT LUMBAR SPINE W/DYE (11/28/15) ELECTROCARDIOGRAM TRACING (05/03/16) EMERGENCY DEPT VISIT (05/03/16) EMERGENCY DEPT VISIT (09/15/14) EMERGENCY DEPT VISIT (09/15/14) EVALUATE PT USE OF INHALER (01/25/15) FIBRIN DEGRADATION QUANT (03/20/16) GLUCOSE BLOOD TEST (03/20/16) HYDRATION IV INFUSION INIT (01/25/15) INJECTION FOR MYELOGRAM (11/28/15) METABOLIC PANEL TOTAL CA (03/20/16) MYELOGRAPHY L-S SPINE (11/28/15) PROTHROMBIN TIME (03/20/16) PT EVALUATION (03/20/16) ROUTINE VENIPUNCTURE (03/20/16) THER/PROPH/DIAG INJ IV PUSH (05/03/16) THERAPEUTIC ACTIVITIES (03/20/16) URINALYSIS AUTO W/SCOPE (03/20/16) X-RAY EXAM OF ANKLE (03/27/15) X-RAY EXAM OF HIP (03/27/15) X-RAY EXAM OF SHOULDER (03/27/15) X-RAY EXAM OF WRIST (03/27/15) (1) Abdominal pain SNOMED Code(s): 20653804 Code(s): R10.9 - UNSPECIFIED ABDOMINAL PAIN Priority: High Current Visit : Yes Qualifiers: Abdominal location: lower abdomen, unspecified Qualified Code(s): R10.30 - Lower abdominal pain, unspecified (2) Constipation SNOMED Code(s): 13002150 Code(s): K59.00 - CONSTIPATION, UNSPECIFIED Priority: High Current Visit : Yes Qualifiers: Constipation type: unspecified constipation type Qualified Code(s): K59.00 - Constipation, unspecified (3) Chronic stable angina SNOMED Code(s): 006908251 Code(s): I20.9 - ANGINA PECTORIS, UNSPECIFIED Priority: Low Current Visit : No Problem List Initiated/Reviewed/Updated: Yes Plan: At this point I don't see any transition point on CT or abdominal films. The small bowel is mildly dilated but no air fluid levels. There is a large amount of fecal material scattered throughout the colon but there is air in the left colon. Would not put an orogastric tube in for fear of aspiration. Would hold on NG tube unless she develops intractable vomiting. Okay to let her have some ice chips and sips of water along with soda crackers. Repeat flat/upright abdominal films in am.
[2016-11-26] MEDS ORDERED: Metoclopramide 10 MG/2 ML SDV IVPUSH PRN (17:47)
[2016-11-26] MEDS ORDERED: metroNIDAZOLE/Normal Saline 500 MG in Premix Bag 1 BAG IV SCH (18:00)
[2016-11-26] MEDS: Sodium Chloride 0.45% 1,000 ML IV SCH (18:17)
[2016-11-26] MEDS: Bisacodyl 10 MG Supp RECTAL PRN (18:28)
[2016-11-26] MEDS: Acetaminophen 325 MG Tab PO PRN (20:06)
[2016-11-26] MEDS ORDERED: Mirtazapine 15 MG Tab.DIS PO SCH (21:00)
[2016-11-27] MEDS: Sodium Chloride 0.45% 1,000 ML IV SCH ×3 (02:30→18:57)
[2016-11-27] MEDS: Acetaminophen 325 MG Tab PO PRN ×2 (05:43→20:11)
[2016-11-27] MEDS ORDERED: Metoclopramide 10 MG/2 ML SDV IVPUSH PRN (07:08)
--- NOTE | 2016-11-27 08:16 | PCM.PN ---
- General Info Date of Service: 11/27/16 Subjective Update: Attempted to insert NG tube yesterday unsuccessful due to patients past nasal fracture and intolerance. Attempted to insert OG tube, successful had 100 ml output. She was uncomfortable with nausea and vomiting. OG was taken out due to risk of aspiration. Manually removed stool yesterday. This morning around 2 am she had small pebble like stool. currently she is able to pass gas. - Review of Systems General: Reports: no symptoms HEENT: Reports: no symptoms Pulmonary: Reports: no symptoms Cardiovascular: Reports: no symptoms Gastrointestinal: Reports: Abdominal pain Genitourinary: Reports: no symptoms Musculoskeletal: Reports: no symptoms Skin: Reports: no symptoms Neurological: Reports: no symptoms Psychiatric: Reports: no symptoms - Patient Data Vitals - most recent: Last Vital Signs Temp 98.6 F 11/27/16 04:00 Pulse 89 11/27/16 04:00 Resp 17 11/27/16 04:00 BP 155/72 H 11/27/16 04:00 Pulse Ox 96 11/27/16 04:00 Weight - most recent: 42.5 kg I&O - last 24 hours: Intake & Output 11/26/16 11/27/16 11/27/16 22:59 06:59 14:59 Intake Total 1052 2139 Output Total 450 300 Balance 602 1839 Lab Results last 24 hrs: Laboratory Results - last 24 hr 11/26/16 Range/Units 12:40 Urine Color YELLOW Urine Appearance CLEAR Urine pH 5.5 (5.0-8.0) Ur Specific [place] >= 1.030 (1.001-1.035) Urine Protein NEGATIVE (NEGATIVE) mg/dL Urine Glucose (UA) NEGATIVE (NEGATIVE) mg/dL Urine Ketones NEGATIVE (NEGATIVE) mg/dL Urine Occult Blood MODERATE (NEGATIVE) Urine Nitrite NEGATIVE (NEGATIVE) Urine Bilirubin NEGATIVE (NEGATIVE) Urine Urobilinogen 0.2 (<2.0) EU/dL Ur Leukocyte Esterase NEGATIVE (NEGATIVE) Urine RBC 4-6 (0-2/HPF) Urine WBC 1-2 (0-5/HPF) Ur Epithelial Cells FEW (NONE-FEW) Urine Bacteria FEW (NEGATIVE) Med Orders - Current: Current Medications Acetaminophen (Tylenol) 650 mg PO Q6H PRN PRN Reason: Pain Last Admin: 11/27/16 05:43 Dose: 650 mg Bisacodyl (Dulcolax) 10 mg RECTAL BID PRN PRN Reason: Constipation Last Admin: 11/26/16 18:28 Dose: 10 mg Docusate Sodium (Colace) 200 mg PO BID [facility] Last Admin: 11/26/16 20:10 Dose: 200 mg Pantoprazole Sodium 40 mg/ (Sodium Chloride) 10 mls @ 300 mls/hr IVPUSH Q24H GIULIANO Last Admin: 11/26/16 22:21 Dose: 300 mls/hr Sodium Chloride (Sodium Chloride 0.45%) 1,000 mls @ 125 mls/hr IV ASDIRECTED [facility] Last Admin: 11/27/16 02:30 Dose: 125 mls/hr Metoclopramide HCl (Reglan) 5 mg IVPUSH Q8H PRN PRN Reason: n/v Mirtazapine (Remeron) 15 mg PO BEDTIME [facility] Last Admin: 11/26/16 20:11 Dose: 15 mg Ondansetron HCl (Zofran) 4 mg IVPUSH Q4H PRN PRN Reason: Nausea/Vomiting Last Admin: 11/26/16 20:08 Dose: 4 mg Polyethylene Glycol (Miralax) 17 gm PO DAILY PRN PRN Reason: Constipation Last Admin: 11/26/16 05:04 Dose: 17 gm Sertraline HCl (Zoloft) 50 mg PO DAILY [facility] Discontinued Medications Benzocaine (Hurricaine One 20%) 1 each MUCMEM ONETIME ONE Stop: 11/26/16 16:38 Last Admin: 11/26/16 17:00 Dose: 1 each Benzocaine (Hurricaine One 20%) Confirm Administered Dose 1 each MUCMEM .STK- MED ONE Stop: 11/26/16 16:41 Last Admin: 11/26/16 17:20 Dose: Not Given Hydromorphone HCl (Dilaudid) 0.5 mg IVPUSH ONETIME ONE Stop: 11/25/16 21:35 Last Admin: 11/25/16 21:41 Dose: 0.5 mg Sodium Chloride (Normal Saline) 1,000 mls @ 999 mls/hr IV STAT ONE Stop: 11/25/16 18:55 Last Admin: 11/25/16 18:31 Dose: 999 mls/hr Sodium Chloride (Normal Saline) 1,000 mls @ 250 mls/hr IV STAT ONE Stop: 11/25/16 22:42 Last Admin: 11/25/16 19:12 Dose: 250 mls/hr Ciprofloxacin/Dextrose 400 mg/ (Premix) 200 mls @ 200 mls/hr IV Q12H GIULIANO Last Admin: 11/26/16 12:58 Dose: 200 mls/hr Metronidazole 500 mg/ Premix 100 mls @ 100 mls/hr IV QID GIULIANO Last Admin: 11/26/16 18:15 Dose: 100 mls/hr Metoclopramide HCl (Reglan) 10 mg IVPUSH Q8H PRN PRN Reason: n/v Last Admin: 11/27/16 02:48 Dose: 10 mg Morphine Sulfate (Morphine) 2 mg IVPUSH ONETIME ONE Stop: 11/25/16 17:56 Last Admin: 11/25/16 18:26 Dose: 2 mg Morphine Sulfate (Morphine) 2 mg IVPUSH ONETIME ONE Stop: 11/25/16 19:17 Last Admin: 11/25/16 19:20 Dose: 2 mg Morphine Sulfate (Morphine) 2 mg IVPUSH Q2H PRN PRN Reason: Pain Last Admin: 11/26/16 08:18 Dose: 2 mg Ondansetron HCl (Zofran) 4 mg IVPUSH ONETIME ONE Stop: 11/25/16 17:56 Last Admin: 11/25/16 18:22 Dose: 4 mg Ondansetron HCl (Zofran) 4 mg IVPUSH ONETIME ONE Stop: 11/25/16 21:48 Last Admin: 11/25/16 21:53 Dose: 4 mg Ondansetron HCl (Zofran) 4 mg IVPUSH ONETIME ONE Stop: 11/26/16 15:37 Last Admin: 11/26/16 15:45 Dose: Not Given - Exam General: alert, oriented HEENT: Pupils equal, EOMI Neck: supple, trachea midline Lungs: Clear to auscultation, Normal respiratory effort Cardiovascular: regular rate, regular rhythm Abdomen: soft, tenderness, other. No: rebound, distension Back Exam: normal inspection Extremities: no edema Skin: warm, dry, intact Neurological: no new focal deficit Psy/Mental Status: alert, normal affect, normal mood - Problem List Review Problem List Initiated/Reviewed/Updated: Yes - My Orders Last 24 Hours: My Active Orders 11/26/16 12:26 Enema [RC] ASDIRECTED 11/26/16 14:47 NG [Nasogastric Orogastric Tube Insertion] [OM.PC] Stat 11/26/16 21:00 Mirtazapine [Remeron] 15 mg PO BEDTIME 11/26/16 Dinner NPO Now [Nothing per Oral Now Diet] [DIET] 11/27/16 08:08 BASIC METABOLIC PANEL,BMP [CHEM] Routine CBC WITH AUTO DIFF [HEME] Routine - Plan Plan:: 86 yo female admitted for abdominal pain: Ileus vs SBO NPO with ice chips, soda with crackers. On IVF to 125 ml /hr on cipro and flagyl: No elevated WBC today repeat abdominal Xray this morning shows bowel gas pattersns suggesting small bowel obstruction. No intrapertioneal air. Dr. Valle notified. Hyperkalemia 5.5: check EKG: No changes. repeat BMP this afternoon. DC morphine zofran and reglan prn for nausea
[2016-11-27 09:25] LABS: CHLORIDE,CL 103 mmol/L (98-110); SODIUM,NA 134 mmol/L (136-146)
[2016-11-27] MEDS: Docusate Sodium 100 MG Cap PO SCH ×2 (09:59→20:12)
[2016-11-27] MEDS: Sertraline 25 MG Tab PO SCH (10:00)
[2016-11-27] MEDS: Polyethylene Glycol 3350 Powder 17 GM Packet PO PRN (10:02)
[2016-11-27] MEDS: Bisacodyl 10 MG Supp RECTAL PRN (10:12)
[2016-11-27] MEDS: Heparin Sodium 5,000 Units/ML Vial SUBCUT SCH ×2 (12:49→20:12)
--- NOTE | 2016-11-27 13:49 | PCM.CONSN ---
- General Info Date of Service: 11/27/16 Admission Dx/Problem (Free Text): Admission Diagnosis/Problem Admission Diagnosis/Problem Abdominal pain Subjective Update: Patient denies abdominal pain, N/V at this time. Dr. Appiah' notes reflect small BM and flatus earlier today. Functional Status: Reports: pain controlled, ambulating, urinating - Review of Systems General: Reports: weakness, fatigue. Denies: fever HEENT: Reports: no symptoms Pulmonary: Denies: shortness of breath, cough Cardiovascular: Denies: chest pain Gastrointestinal: Reports: Abdominal pain, Constipation, Decreased appetite, Flatus. Denies: Diarrhea, Difficulty swallowing, Hematochezia, Melena, Nausea, Vomiting Genitourinary: Reports: no symptoms Musculoskeletal: Reports: no symptoms Skin: Reports: no symptoms Neurological: Reports: no symptoms Psychiatric: Reports: no symptoms - Patient Data Vitals - most recent: Last Vital Signs Temp 99.5 F 11/27/16 12:21 Pulse 60 11/27/16 09:00 Resp 20 11/27/16 12:21 BP 155/70 H 11/27/16 12:21 Pulse Ox 95 11/27/16 12:21 Weight - most recent: 93 lb 11.143 oz I&O - last 24 hours: Intake & Output 11/27/16 11/27/16 11/27/16 03:59 11:59 19:59 Intake Total 1010 1139 Output Total 300 Balance 1010 839 Lab Results last 24 hrs: Laboratory Results - last 24 hr 11/27/16 11/27/16 Range/Units 08:57 08:57 WBC 10.20 (4.0-11.0) K/uL RBC 4.42 (4.30-5.90) M/uL Hgb 13.9 (12.0-16.0) g/dL Hct 41.3 (36.0-46.0) % MCV 93.4 (80.0-98.0) fL MCH 31.4 (27.0-32.0) pg MCHC 33.7 (31.0-37.0) g/dL RDW Std Deviation 45.5 (28.0-62.0) fl RDW Coeff of Lissa 13 (11.0-15.0) % Plt Count 204 (150-400) K/uL MPV 9.60 (7.40-12.00) fL Neut % (Auto) 82.6 H (48.0-80.0) % Lymph % (Auto) 9.2 L (16.0-40.0) % [place] % (Auto) 7.7 (0.0-15.0) % Eos % (Auto) 0.2 (0.0-7.0) % Baso % (Auto) 0.3 (0.0-1.5) % Neut # 8.4 H (1.4-5.7) K/uL Lymph # 0.9 (0.6-2.4) K/uL [place] # 0.8 (0.0-0.8) K/uL Eos # 0.0 (0.0-0.7) K/uL Baso # 0.0 (0.0-0.1) K/uL Nucleated RBC % 0.0 /100WBC Nucleated RBCs # 0 K/uL Sodium 134 L (136-146) mmol/L Potassium 5.5 H (3.5-5.1) mmol/L Chloride 103 (98-110) mmol/L Carbon Dioxide 22 (21-31) mmol/L BUN 12 (6.0-23.0) mg/dL Creatinine 0.7 (0.6-1.5) mg/dL Est Cr Clr Drug Dosing 37.27 mL/min Estimated GFR (MDRD) > 60.0 ml/min Glucose 100 (60-110) mg/dL Calcium 8.6 L (8.8-10.8) mg/dL Med Orders - Current: Current Medications Acetaminophen (Tylenol) 650 mg PO Q6H PRN PRN Reason: Pain Last Admin: 11/27/16 05:43 Dose: 650 mg Bisacodyl (Dulcolax) 10 mg RECTAL BID PRN PRN Reason: Constipation Last Admin: 11/27/16 10:12 Dose: 10 mg Docusate Sodium (Colace) 200 mg PO BID [facility] Last Admin: 11/27/16 09:59 Dose: 200 mg Heparin Sodium (Porcine) (Heparin Sodium) 5,000 units SUBCUT BID [facility] Last Admin: 11/27/16 12:49 Dose: 5,000 units Pantoprazole Sodium 40 mg/ (Sodium Chloride) 10 mls @ 300 mls/hr IVPUSH Q24H [facility] Last Admin: 11/26/16 22:21 Dose: 300 mls/hr Sodium Chloride (Sodium Chloride 0.45%) 1,000 mls @ 125 mls/hr IV ASDIRECTED [facility] Last Admin: 11/27/16 10:43 Dose: 125 mls/hr Metoclopramide HCl (Reglan) 5 mg IVPUSH Q8H PRN PRN Reason: n/v Ondansetron HCl (Zofran) 4 mg IVPUSH Q4H PRN PRN Reason: Nausea/Vomiting Last Admin: 11/26/16 20:08 Dose: 4 mg Polyethylene Glycol (Miralax) 17 gm PO DAILY PRN PRN Reason: Constipation Last Admin: 11/27/16 10:02 Dose: 17 gm Sertraline HCl (Zoloft) 50 mg PO DAILY [facility] Last Admin: 11/27/16 10:00 Dose: 50 mg Discontinued Medications Benzocaine (Hurricaine One 20%) 1 each MUCMEM ONETIME ONE Stop: 11/26/16 16:38 Last Admin: 11/26/16 17:00 Dose: 1 each Benzocaine (Hurricaine One 20%) Confirm Administered Dose 1 each MUCMEM .STK- MED ONE Stop: 11/26/16 16:41 Last Admin: 11/26/16 17:20 Dose: Not Given Hydromorphone HCl (Dilaudid) 0.5 mg IVPUSH ONETIME ONE Stop: 11/25/16 21:35 Last Admin: 11/25/16 21:41 Dose: 0.5 mg Sodium Chloride (Normal Saline) 1,000 mls @ 999 mls/hr IV STAT ONE Stop: 11/25/16 18:55 Last Admin: 11/25/16 18:31 Dose: 999 mls/hr Sodium Chloride (Normal Saline) 1,000 mls @ 250 mls/hr IV STAT ONE Stop: 11/25/16 22:42 Last Admin: 11/25/16 19:12 Dose: 250 mls/hr Ciprofloxacin/Dextrose 400 mg/ (Premix) 200 mls @ 200 mls/hr IV Q12H [facility] Last Admin: 11/26/16 12:58 Dose: 200 mls/hr Metronidazole 500 mg/ Premix 100 mls @ 100 mls/hr IV QID [facility] Last Admin: 11/26/16 18:15 Dose: 100 mls/hr Metoclopramide HCl (Reglan) 10 mg IVPUSH Q8H PRN PRN Reason: n/v Last Admin: 11/27/16 02:48 Dose: 10 mg Mirtazapine (Remeron) 15 mg PO BEDTIME [facility] Last Admin: 11/26/16 20:11 Dose: 15 mg Morphine Sulfate (Morphine) 2 mg IVPUSH ONETIME ONE Stop: 11/25/16 17:56 Last Admin: 11/25/16 18:26 Dose: 2 mg Morphine Sulfate (Morphine) 2 mg IVPUSH ONETIME ONE Stop: 11/25/16 19:17 Last Admin: 11/25/16 19:20 Dose: 2 mg Morphine Sulfate (Morphine) 2 mg IVPUSH Q2H PRN PRN Reason: Pain Last Admin: 11/26/16 08:18 Dose: 2 mg Ondansetron HCl (Zofran) 4 mg IVPUSH ONETIME ONE Stop: 11/25/16 17:56 Last Admin: 11/25/16 18:22 Dose: 4 mg Ondansetron HCl (Zofran) 4 mg IVPUSH ONETIME ONE Stop: 11/25/16 21:48 Last Admin: 11/25/16 21:53 Dose: 4 mg Ondansetron HCl (Zofran) 4 mg IVPUSH ONETIME ONE Stop: 11/26/16 15:37 Last Admin: 11/26/16 15:45 Dose: Not Given - Exam Quality Assessment: supplemental oxygen General: alert, oriented, cooperative, mild distress HEENT: Pupils equal, Pupils reactive. No: Scleral icterus Neck: supple Lungs: Clear to auscultation, Normal respiratory effort. No: Rales, Wheezing Cardiovascular: regular rate, regular rhythm, other (AV sequential pacemaker) Abdomen: bowel sounds present, no tenderness, distension (mild). No: rebound, guarding (Female) Exam: Deferred Extremities: no edema, normal pulses Skin: warm, dry, intact Neurological: no new focal deficit Psy/Mental Status: alert, normal affect Consult PN Assessment/Plan Procedures: Procedures ASSAY OF AMYLASE (05/03/16) ASSAY OF CK (CPK) (05/03/16) ASSAY OF LACTIC ACID (01/25/15) ASSAY OF LIPASE (09/15/14) ASSAY OF MAGNESIUM (03/20/16) ASSAY OF NATRIURETIC PEPTIDE (01/25/15) ASSAY OF TROPONIN QUANT (05/03/16) ASSAY THYROID STIM HORMONE (03/20/16) CHEST X-RAY 1 VIEW FRONTAL (05/03/16) CHEST X-RAY 2VW FRONTAL&LATL (03/20/16) COMPLETE CBC W/AUTO DIFF WBC (05/03/16) COMPREHEN METABOLIC PANEL (05/03/16) CREATINE MB FRACTION (05/03/16) CT ABD & PELV W/CONTRAST (09/15/14) CT HEAD/BRAIN W/O DYE (03/20/16) CT LUMBAR SPINE W/DYE (11/28/15) ELECTROCARDIOGRAM TRACING (05/03/16) EMERGENCY DEPT VISIT (05/03/16) EMERGENCY DEPT VISIT (09/15/14) EMERGENCY DEPT VISIT (09/15/14) EVALUATE PT USE OF INHALER (01/25/15) FIBRIN DEGRADATION QUANT (03/20/16) GLUCOSE BLOOD TEST (03/20/16) HYDRATION IV INFUSION INIT (01/25/15) INJECTION FOR MYELOGRAM (11/28/15) METABOLIC PANEL TOTAL CA (03/20/16) MYELOGRAPHY L-S SPINE (11/28/15) PROTHROMBIN TIME (03/20/16) PT EVALUATION (03/20/16) ROUTINE VENIPUNCTURE (03/20/16) THER/PROPH/DIAG INJ IV PUSH (05/03/16) THERAPEUTIC ACTIVITIES (03/20/16) URINALYSIS AUTO W/SCOPE (03/20/16) X-RAY EXAM OF ANKLE (03/27/15) X-RAY EXAM OF HIP (03/27/15) X-RAY EXAM OF SHOULDER (03/27/15) X-RAY EXAM OF WRIST (03/27/15) (1) Abdominal pain SNOMED Code(s): 33539774 Code(s): R10.9 - UNSPECIFIED ABDOMINAL PAIN Priority: High Current Visit : Yes Qualifiers: Abdominal location: lower abdomen, unspecified Qualified Code(s): R10.30 - Lower abdominal pain, unspecified (2) Constipation SNOMED Code(s): 83875196 Code(s): K59.00 - CONSTIPATION, UNSPECIFIED Priority: High Current Visit : Yes Qualifiers: Constipation type: unspecified constipation type Qualified Code(s): K59.00 - Constipation, unspecified (3) Chronic stable angina SNOMED Code(s): 168871143 Code(s): I20.9 - ANGINA PECTORIS, UNSPECIFIED Priority: Low Current Visit : No Problem List Initiated/Reviewed/Updated: Yes My Orders last 24 hours: My Active Orders 11/27/16 08:00 Abdomen 2V AP Flat Upright [CR] Routine Plan: Abdominal films show air in both small bowel and large intestine. Bowel sounds are more active than yesterday, but still hypoactive. No masses are noted. No tenderness on exam, no significant abdominal distension. Still favor ileus over SBO. Patient is a very high risk surgical candidate, especially in [place]. In her current state, if she requires laparotomy she will most likely ventilator support. With her pacemaker in place, she would best by served by transfer to a larger facility should surgery be necessary. Thank you.
[2016-11-27 13:57] LABS: CHLORIDE,CL 103 mmol/L (98-110); SODIUM,NA 133 mmol/L (136-146)
[2016-11-27] MEDS: Ondansetron 4 MG/2 ML SDV IVPUSH PRN (16:49)
--- NOTE | 2016-11-27 19:49 | CR ---
EXAM DATE: 11/25/16 PATIENT'S AGE: 86 Patient: FATEMEH ABRAMS Facility: [place], [place] Site . Site : [id number] Study: XRay Abdomen [id number]/10/2017 8:28:20 AM Ordering Physician: Zuleyma Turner Final Report: Indication: Ileus versus small bowel obstruction. Technique: Two-view abdomen. Comparison: Abdomen 11/26/[address] abdomen pelvis 11/25/2016. Findings: There is an increased number of dilated small bowel loops. Multiple small bowel air-fluid levels are present. There is a paucity of gas in the colon. No free intraperitoneal air is present. Lung bases appear clear. A right hip arthroplasty is present. No abnormal bowel wall thickening is visible. Impression: Bowel gas pattern suggests a small bowel obstruction. There is no free intraperitoneal air. Dictated by Kamla Graves MD @ Nov 27 2016 8:33AM (Electronic Signature) Report Signed by Proxy and Original Signed Document filed in the Medical Record. MTDD
[2016-11-27] MEDS: Pantoprazole 40 MG in Sodium Chloride 0.9% 10 ML IVPUSH SCH (23:27)
[2016-11-28] MEDS: Sodium Chloride 0.45% 1,000 ML IV SCH (03:24)
[2016-11-28] MEDS: Ondansetron 4 MG/2 ML SDV IVPUSH PRN ×2 (04:22→12:03)
[2016-11-28 06:39] LABS: CHLORIDE,CL 102 mmol/L (98-110); SODIUM,NA 132 mmol/L (136-146)
[2016-11-28] MEDS ORDERED: Sodium Chloride 0.9% with KCl 1,000 ML IV SCH (07:15)
--- NOTE | 2016-11-28 07:54 | PCM.PN ---
- Review of Systems Systems Review Comment:: patient denies any abdominal pain today, has had multiple loose stools last night and this morning. - Patient Data Vitals - most recent: Last Vital Signs Temp 37.1 C 11/28/16 03:49 Pulse 71 11/28/16 03:49 Resp 18 11/28/16 03:49 BP 152/69 H 11/28/16 03:49 Pulse Ox 94 L 11/28/16 03:49 Weight - most recent: 42.5 kg I&O - last 24 hours: Intake & Output 11/27/16 11/28/16 11/28/16 22:59 06:59 14:59 Intake Total 1100 1047 Output Total 400 750 Balance 700 297 Lab Results last 24 hrs: Laboratory Results - last 24 hr 11/27/16 11/28/16 11/28/16 Range/Units 13:26 05:45 05:45 WBC 10.80 (4.0-11.0) K/uL RBC 4.01 L (4.30-5.90) M/uL Hgb 12.5 (12.0-16.0) g/dL Hct 36.7 (36.0-46.0) % MCV 91.5 (80.0-98.0) fL MCH 31.2 (27.0-32.0) pg MCHC 34.1 (31.0-37.0) g/dL RDW Std Deviation 43.8 (28.0-62.0) fl RDW Coeff of Lissa 13 (11.0-15.0) % Plt Count 250 (150-400) K/uL MPV 9.10 (7.40-12.00) fL Neut % (Auto) 79.1 (48.0-80.0) % Lymph % (Auto) 11.2 L (16.0-40.0) % [place] % (Auto) 9.2 (0.0-15.0) % Eos % (Auto) 0.3 (0.0-7.0) % Baso % (Auto) 0.2 (0.0-1.5) % Neut # 8.6 H (1.4-5.7) K/uL Lymph # 1.2 (0.6-2.4) K/uL [place] # 1.0 H (0.0-0.8) K/uL Eos # 0.0 (0.0-0.7) K/uL Baso # 0.0 (0.0-0.1) K/uL Nucleated RBC % 0.0 /100WBC Nucleated RBCs # 0 K/uL Sodium 133 L 132 L (136-146) mmol/L Potassium 3.7 3.3 L (3.5-5.1) mmol/L Chloride 103 102 (98-110) mmol/L Carbon Dioxide 20 L 20 L (21-31) mmol/L BUN 11 9 (6.0-23.0) mg/dL Creatinine 0.6 0.5 L (0.6-1.5) mg/dL Est Cr Clr Drug Dosing 43.48 52.18 mL/min Estimated GFR (MDRD) > 60.0 > 60.0 ml/min Glucose 110 82 (60-110) mg/dL Calcium 8.0 L 7.9 L (8.8-10.8) mg/dL Total Bilirubin 1.2 (0.1-1.5) mg/dL AST 23 (5-40) IU/L ALT 13 (8-54) IU/L Alkaline Phosphatase 51 (40-150) Total Protein 5.8 L (6.0-8.0) g/dL Albumin 2.9 L (3.4-4.8) g/dL Globulin 2.9 (2.0-3.5) g/dL Albumin/Globulin Ratio 1.0 L (1.3-2.8) Med Orders - Current: Current Medications Acetaminophen (Tylenol) 650 mg PO Q6H PRN PRN Reason: Pain Last Admin: 11/27/16 20:11 Dose: 650 mg Bisacodyl (Dulcolax) 10 mg RECTAL BID PRN PRN Reason: Constipation Last Admin: 11/27/16 10:12 Dose: 10 mg Docusate Sodium (Colace) 200 mg PO BID [facility] Last Admin: 11/27/16 20:12 Dose: 200 mg Heparin Sodium (Porcine) (Heparin Sodium) 5,000 units SUBCUT BID [facility] Last Admin: 11/27/16 20:12 Dose: 5,000 units Pantoprazole Sodium 40 mg/ (Sodium Chloride) 10 mls @ 300 mls/hr IVPUSH Q24H [facility] Last Admin: 11/27/16 23:27 Dose: 300 mls/hr Potassium Chloride/Sodium Chloride (Normal Saline With 40 Meq Kcl) 1,000 mls @ 150 mls/hr IV ASDIRECTED [facility] Stop: 11/28/16 13:54 Last Admin: 11/28/16 07:20 Dose: 150 mls/hr Metoclopramide HCl (Reglan) 5 mg IVPUSH Q8H PRN PRN Reason: n/v Ondansetron HCl (Zofran) 4 mg IVPUSH Q4H PRN PRN Reason: Nausea/Vomiting Last Admin: 11/28/16 04:22 Dose: 4 mg Polyethylene Glycol (Miralax) 17 gm PO DAILY PRN PRN Reason: Constipation Last Admin: 11/27/16 10:02 Dose: 17 gm Sertraline HCl (Zoloft) 50 mg PO DAILY [facility] Last Admin: 11/27/16 10:00 Dose: 50 mg Discontinued Medications Benzocaine (Hurricaine One 20%) 1 each MUCMEM ONETIME ONE Stop: 11/26/16 16:38 Last Admin: 11/26/16 17:00 Dose: 1 each Benzocaine (Hurricaine One 20%) Confirm Administered Dose 1 each MUCMEM .STK- MED ONE Stop: 11/26/16 16:41 Last Admin: 11/26/16 17:20 Dose: Not Given Hydromorphone HCl (Dilaudid) 0.5 mg IVPUSH ONETIME ONE Stop: 11/25/16 21:35 Last Admin: 11/25/16 21:41 Dose: 0.5 mg Sodium Chloride (Normal Saline) 1,000 mls @ 999 mls/hr IV STAT ONE Stop: 11/25/16 18:55 Last Admin: 11/25/16 18:31 Dose: 999 mls/hr Sodium Chloride (Normal Saline) 1,000 mls @ 250 mls/hr IV STAT ONE Stop: 11/25/16 22:42 Last Admin: 11/25/16 19:12 Dose: 250 mls/hr Sodium Chloride (Sodium Chloride 0.45%) 1,000 mls @ 125 mls/hr IV ASDIRECTED [facility] Last Admin: 11/28/16 03:24 Dose: 125 mls/hr Ciprofloxacin/Dextrose 400 mg/ (Premix) 200 mls @ 200 mls/hr IV Q12H [facility] Last Admin: 11/26/16 12:58 Dose: 200 mls/hr Metronidazole 500 mg/ Premix 100 mls @ 100 mls/hr IV QID [facility] Last Admin: 11/26/16 18:15 Dose: 100 mls/hr Metoclopramide HCl (Reglan) 10 mg IVPUSH Q8H PRN PRN Reason: n/v Last Admin: 11/27/16 02:48 Dose: 10 mg Mirtazapine (Remeron) 15 mg PO BEDTIME [facility] Last Admin: 11/26/16 20:11 Dose: 15 mg Morphine Sulfate (Morphine) 2 mg IVPUSH ONETIME ONE Stop: 11/25/16 17:56 Last Admin: 11/25/16 18:26 Dose: 2 mg Morphine Sulfate (Morphine) 2 mg IVPUSH ONETIME ONE Stop: 11/25/16 19:17 Last Admin: 11/25/16 19:20 Dose: 2 mg Morphine Sulfate (Morphine) 2 mg IVPUSH Q2H PRN PRN Reason: Pain Last Admin: 11/26/16 08:18 Dose: 2 mg Ondansetron HCl (Zofran) 4 mg IVPUSH ONETIME ONE Stop: 11/25/16 17:56 Last Admin: 11/25/16 18:22 Dose: 4 mg Ondansetron HCl (Zofran) 4 mg IVPUSH ONETIME ONE Stop: 11/25/16 21:48 Last Admin: 11/25/16 21:53 Dose: 4 mg Ondansetron HCl (Zofran) 4 mg IVPUSH ONETIME ONE Stop: 11/26/16 15:37 Last Admin: 11/26/16 15:45 Dose: Not Given - Exam General: alert, oriented Lungs: Clear to auscultation, Normal respiratory effort Cardiovascular: regular rate, regular rhythm Abdomen: bowel sounds present, soft, no tenderness, no distension Extremities: no edema Skin: warm, dry, intact - Problem List Review Problem List Initiated/Reviewed/Updated: Yes - My Orders Last 24 Hours: My Active Orders 11/28/16 07:15 Sodium Chloride 0.9% with KCl [Normal Saline with 40 mEq KCl] 1,000 ml IV ASDIRECTED 11/29/16 05:11 BASIC METABOLIC PANEL,BMP [CHEM] AM CBC WITH AUTO DIFF [HEME] AM 11/30/16 05:11 BASIC METABOLIC PANEL,BMP [CHEM] AM CBC WITH AUTO DIFF [HEME] AM 12/01/16 05:11 BASIC METABOLIC PANEL,BMP [CHEM] AM CBC WITH AUTO DIFF [HEME] AM - Plan Plan:: 86 yo female admitted for ileus. Her abdominal pain has resolved and she is having multiple loose stools, we will try clear liquid diet today. zofran and reglan prn for nausea
[2016-11-28] MEDS: Sertraline 25 MG Tab PO SCH (09:02)
[2016-11-28] MEDS: Heparin Sodium 5,000 Units/ML Vial SUBCUT SCH ×2 (09:02→20:35)
--- NOTE | 2016-11-28 10:06 | PCM.CONSN ---
- General Info Date of Service: 11/28/16 Admission Dx/Problem (Free Text): Abdominal pain--ileus vs sbo Subjective Update: Patient is feeling better today. Is having loose stools. No N/V. Functional Status: Reports: pain controlled, tolerating diet, ambulating, urinating - Review of Systems General: Reports: fever (Tmax 100.6), weakness Pulmonary: Denies: shortness of breath, cough Cardiovascular: Denies: chest pain Gastrointestinal: Reports: Abdominal pain (mild), Constipation, Diarrhea, Flatus. Denies: Hematochezia, Melena, Nausea, Vomiting Genitourinary: Denies: dysuria, frequency, burning, pain, urgency Musculoskeletal: Reports: no symptoms Skin: Reports: no symptoms Neurological: Reports: no symptoms Psychiatric: Reports: no symptoms - Patient Data Vitals - most recent: Last Vital Signs Temp 98.4 F 11/28/16 08:00 Pulse 66 11/28/16 08:00 Resp 16 11/28/16 08:00 BP 133/77 11/28/16 08:00 Pulse Ox 96 11/28/16 08:00 Weight - most recent: 93 lb 11.143 oz I&O - last 24 hours: Intake & Output 11/27/16 11/28/16 11/28/16 19:59 03:59 11:59 Intake Total 1100 1047 Output Total 400 750 Balance 700 297 Lab Results last 24 hrs: Laboratory Results - last 24 hr 11/27/16 11/28/16 11/28/16 Range/Units 13:26 05:45 05:45 WBC 10.80 (4.0-11.0) K/uL RBC 4.01 L (4.30-5.90) M/uL Hgb 12.5 (12.0-16.0) g/dL Hct 36.7 (36.0-46.0) % MCV 91.5 (80.0-98.0) fL MCH 31.2 (27.0-32.0) pg MCHC 34.1 (31.0-37.0) g/dL RDW Std Deviation 43.8 (28.0-62.0) fl RDW Coeff of Lissa 13 (11.0-15.0) % Plt Count 250 (150-400) K/uL MPV 9.10 (7.40-12.00) fL Neut % (Auto) 79.1 (48.0-80.0) % Lymph % (Auto) 11.2 L (16.0-40.0) % [place] % (Auto) 9.2 (0.0-15.0) % Eos % (Auto) 0.3 (0.0-7.0) % Baso % (Auto) 0.2 (0.0-1.5) % Neut # 8.6 H (1.4-5.7) K/uL Lymph # 1.2 (0.6-2.4) K/uL [place] # 1.0 H (0.0-0.8) K/uL Eos # 0.0 (0.0-0.7) K/uL Baso # 0.0 (0.0-0.1) K/uL Nucleated RBC % 0.0 /100WBC Nucleated RBCs # 0 K/uL Sodium 133 L 132 L (136-146) mmol/L Potassium 3.7 3.3 L (3.5-5.1) mmol/L Chloride 103 102 (98-110) mmol/L Carbon Dioxide 20 L 20 L (21-31) mmol/L BUN 11 9 (6.0-23.0) mg/dL Creatinine 0.6 0.5 L (0.6-1.5) mg/dL Est Cr Clr Drug Dosing 43.48 52.18 mL/min Estimated GFR (MDRD) > 60.0 > 60.0 ml/min Glucose 110 82 (60-110) mg/dL Calcium 8.0 L 7.9 L (8.8-10.8) mg/dL Total Bilirubin 1.2 (0.1-1.5) mg/dL AST 23 (5-40) IU/L ALT 13 (8-54) IU/L Alkaline Phosphatase 51 (40-150) Total Protein 5.8 L (6.0-8.0) g/dL Albumin 2.9 L (3.4-4.8) g/dL Globulin 2.9 (2.0-3.5) g/dL Albumin/Globulin Ratio 1.0 L (1.3-2.8) Med Orders - Current: Current Medications Acetaminophen (Tylenol) 650 mg PO Q6H PRN PRN Reason: Pain Last Admin: 11/27/16 20:11 Dose: 650 mg Bisacodyl (Dulcolax) 10 mg RECTAL BID PRN PRN Reason: Constipation Last Admin: 11/27/16 10:12 Dose: 10 mg Docusate Sodium (Colace) 100 mg PO BID [facility] Heparin Sodium (Porcine) (Heparin Sodium) 5,000 units SUBCUT BID [facility] Last Admin: 11/28/16 09:02 Dose: 5,000 units Pantoprazole Sodium 40 mg/ (Sodium Chloride) 10 mls @ 300 mls/hr IVPUSH Q24H [facility] Last Admin: 11/27/16 23:27 Dose: 300 mls/hr Potassium Chloride/Sodium Chloride (Normal Saline With 40 Meq Kcl) 1,000 mls @ 150 mls/hr IV ASDIRECTED [facility] Stop: 11/28/16 13:54 Last Admin: 11/28/16 07:20 Dose: 150 mls/hr Metoclopramide HCl (Reglan) 5 mg IVPUSH Q8H PRN PRN Reason: n/v Ondansetron HCl (Zofran) 4 mg IVPUSH Q4H PRN PRN Reason: Nausea/Vomiting Last Admin: 11/28/16 04:22 Dose: 4 mg Polyethylene Glycol (Miralax) 17 gm PO DAILY PRN PRN Reason: Constipation Last Admin: 11/27/16 10:02 Dose: 17 gm Sertraline HCl (Zoloft) 50 mg PO DAILY [facility] Last Admin: 11/28/16 09:02 Dose: 50 mg Discontinued Medications Benzocaine (Hurricaine One 20%) 1 each [facility]EM ONETIME ONE Stop: 11/26/16 16:38 Last Admin: 11/26/16 17:00 Dose: 1 each Benzocaine (Hurricaine One 20%) Confirm Administered Dose 1 each MUCMEM .STK- MED ONE Stop: 11/26/16 16:41 Last Admin: 11/26/16 17:20 Dose: Not Given Docusate Sodium (Colace) 200 mg PO BID [facility] Last Admin: 11/27/16 20:12 Dose: 200 mg Hydromorphone HCl (Dilaudid) 0.5 mg IVPUSH ONETIME ONE Stop: 11/25/16 21:35 Last Admin: 11/25/16 21:41 Dose: 0.5 mg Sodium Chloride (Normal Saline) 1,000 mls @ 999 mls/hr IV STAT ONE Stop: 11/25/16 18:55 Last Admin: 11/25/16 18:31 Dose: 999 mls/hr Sodium Chloride (Normal Saline) 1,000 mls @ 250 mls/hr IV STAT ONE Stop: 11/25/16 22:42 Last Admin: 11/25/16 19:12 Dose: 250 mls/hr Sodium Chloride (Sodium Chloride 0.45%) 1,000 mls @ 125 mls/hr IV ASDIRECTED [facility] Last Admin: 11/28/16 03:24 Dose: 125 mls/hr Ciprofloxacin/Dextrose 400 mg/ (Premix) 200 mls @ 200 mls/hr IV Q12H [facility] Last Admin: 11/26/16 12:58 Dose: 200 mls/hr Metronidazole 500 mg/ Premix 100 mls @ 100 mls/hr IV QID [facility] Last Admin: 11/26/16 18:15 Dose: 100 mls/hr Metoclopramide HCl (Reglan) 10 mg IVPUSH Q8H PRN PRN Reason: n/v Last Admin: 11/27/16 02:48 Dose: 10 mg Mirtazapine (Remeron) 15 mg PO BEDTIME [facility] Last Admin: 11/26/16 20:11 Dose: 15 mg Morphine Sulfate (Morphine) 2 mg IVPUSH ONETIME ONE Stop: 11/25/16 17:56 Last Admin: 11/25/16 18:26 Dose: 2 mg Morphine Sulfate (Morphine) 2 mg IVPUSH ONETIME ONE Stop: 11/25/16 19:17 Last Admin: 11/25/16 19:20 Dose: 2 mg Morphine Sulfate (Morphine) 2 mg IVPUSH Q2H PRN PRN Reason: Pain Last Admin: 11/26/16 08:18 Dose: 2 mg Ondansetron HCl (Zofran) 4 mg IVPUSH ONETIME ONE Stop: 11/25/16 17:56 Last Admin: 11/25/16 18:22 Dose: 4 mg Ondansetron HCl (Zofran) 4 mg IVPUSH ONETIME ONE Stop: 11/25/16 21:48 Last Admin: 11/25/16 21:53 Dose: 4 mg Ondansetron HCl (Zofran) 4 mg IVPUSH ONETIME ONE Stop: 11/26/16 15:37 Last Admin: 11/26/16 15:45 Dose: Not Given - Exam General: alert, oriented, cooperative, no acute distress HEENT: Pupils equal, Pupils reactive. No: Scleral icterus Neck: supple, trachea midline Lungs: Clear to auscultation, Normal respiratory effort Cardiovascular: regular rate, regular rhythm (Pacemaker), no murmurs Abdomen: bowel sounds present (Hypoactive), soft, no tenderness, no distension (Female) Exam: Deferred Back Exam: normal inspection Extremities: no edema Skin: warm, dry, intact Neurological: no new focal deficit Psy/Mental Status: alert, normal affect, normal mood Consult PN Assessment/Plan Procedures: Procedures ASSAY OF AMYLASE (05/03/16) ASSAY OF CK (CPK) (05/03/16) ASSAY OF LACTIC ACID (01/25/15) ASSAY OF LIPASE (09/15/14) ASSAY OF MAGNESIUM (03/20/16) ASSAY OF NATRIURETIC PEPTIDE (01/25/15) ASSAY OF TROPONIN QUANT (05/03/16) ASSAY THYROID STIM HORMONE (03/20/16) CHEST X-RAY 1 VIEW FRONTAL (05/03/16) CHEST X-RAY 2VW FRONTAL&LATL (03/20/16) COMPLETE CBC W/AUTO DIFF WBC (05/03/16) COMPREHEN METABOLIC PANEL (05/03/16) CREATINE MB FRACTION (05/03/16) CT ABD & PELV W/CONTRAST (09/15/14) CT HEAD/BRAIN W/O DYE (03/20/16) CT LUMBAR SPINE W/DYE (11/28/15) ELECTROCARDIOGRAM TRACING (05/03/16) EMERGENCY DEPT VISIT (05/03/16) EMERGENCY DEPT VISIT (09/15/14) EMERGENCY DEPT VISIT (09/15/14) EVALUATE PT USE OF INHALER (01/25/15) FIBRIN DEGRADATION QUANT (03/20/16) GLUCOSE BLOOD TEST (03/20/16) HYDRATION IV INFUSION INIT (01/25/15) INJECTION FOR MYELOGRAM (11/28/15) METABOLIC PANEL TOTAL CA (03/20/16) MYELOGRAPHY L-S SPINE (11/28/15) PROTHROMBIN TIME (03/20/16) PT EVALUATION (03/20/16) ROUTINE VENIPUNCTURE (03/20/16) THER/PROPH/DIAG INJ IV PUSH (05/03/16) THERAPEUTIC ACTIVITIES (03/20/16) URINALYSIS AUTO W/SCOPE (03/20/16) X-RAY EXAM OF ANKLE (03/27/15) X-RAY EXAM OF HIP (03/27/15) X-RAY EXAM OF SHOULDER (03/27/15) X-RAY EXAM OF WRIST (03/27/15) (1) Abdominal pain SNOMED Code(s): 13863929 Code(s): R10.9 - UNSPECIFIED ABDOMINAL PAIN Priority: High Current Visit : Yes Qualifiers: Abdominal location: lower abdomen, unspecified Qualified Code(s): R10.30 - Lower abdominal pain, unspecified (2) Constipation SNOMED Code(s): 88939368 Code(s): K59.00 - CONSTIPATION, UNSPECIFIED Priority: High Current Visit : Yes Qualifiers: Constipation type: unspecified constipation type Qualified Code(s): K59.00 - Constipation, unspecified Assessment:: Ileus appears to have resolved as patient is now having loose stools. (3) Chronic stable angina SNOMED Code(s): 459595477 Code(s): I20.9 - ANGINA PECTORIS, UNSPECIFIED Priority: Low Current Visit : No Problem List Initiated/Reviewed/Updated: Yes Plan: Patient continues to show slow improvement. Having loose stools and minimal discomfort. Started on clear liquids. Ileus appears resolved. Will sign off. Please reconsult me if symptoms recur. Thank you.
[2016-11-28] MEDS: Docusate Sodium 100 MG Cap PO SCH ×2 (12:30→20:41)
[2016-11-28] MEDS: Metoprolol Succinate 25 MG Tab.ER PO SCH (13:25)
[2016-11-28] MEDS: Acetaminophen 325 MG Tab PO PRN (20:35)
[2016-11-28] MEDS: Pantoprazole 40 MG in Sodium Chloride 0.9% 10 ML IVPUSH SCH (23:26)
[2016-11-29] MEDS: Acetaminophen 325 MG Tab PO PRN (04:31)
[2016-11-29 07:12] LABS: CHLORIDE,CL 104 mmol/L (98-110); SODIUM,NA 134 mmol/L (136-146)
[2016-11-29] MEDS ORDERED: Potassium Chloride 20 MEQ Tab.ER PO ONE (07:52)
[2016-11-29] MEDS ORDERED: Magnesium Sulfate/Water 4 GM in Premix Bag 1 BAG IV ONE (08:47)
--- NOTE | 2016-11-29 08:50 | PCM.PN ---
- Review of Systems Systems Review Comment:: reports fatigue, does not feel ready to go home. - Patient Data Vitals - most recent: Last Vital Signs Temp 37.8 C 11/29/16 04:00 Pulse 66 11/29/16 04:00 Resp 22 H 11/29/16 04:00 BP 122/59 L 11/29/16 04:00 Pulse Ox 94 L 11/29/16 04:00 Weight - most recent: 42.5 kg I&O - last 24 hours: Intake & Output 11/28/16 11/29/16 11/29/16 21:59 06:59 14:59 Intake Total Output Total Balance Lab Results last 24 hrs: Laboratory Results - last 24 hr 11/29/16 11/29/16 11/29/16 Range/Units 06:40 06:40 06:40 WBC 8.90 (4.0-11.0) K/uL RBC 3.64 L (4.30-5.90) M/uL Hgb 11.3 L (12.0-16.0) g/dL Hct 33.0 L (36.0-46.0) % MCV 90.7 (80.0-98.0) fL MCH 31.0 (27.0-32.0) pg MCHC 34.2 (31.0-37.0) g/dL RDW Std Deviation 43.5 (28.0-62.0) fl RDW Coeff of Lissa 13 (11.0-15.0) % Plt Count 219 (150-400) K/uL MPV 8.90 (7.40-12.00) fL Neut % (Auto) 67.5 (48.0-80.0) % Lymph % (Auto) 18.0 (16.0-40.0) % [place] % (Auto) 13.0 (0.0-15.0) % Eos % (Auto) 1.2 (0.0-7.0) % Baso % (Auto) 0.3 (0.0-1.5) % Neut # 6.0 H (1.4-5.7) K/uL Lymph # 1.6 (0.6-2.4) K/uL [place] # 1.2 H (0.0-0.8) K/uL Eos # 0.1 (0.0-0.7) K/uL Baso # 0.0 (0.0-0.1) K/uL Nucleated RBC % 0.0 /100WBC Nucleated RBCs # 0 K/uL Sodium 134 L (136-146) mmol/L Potassium 3.2 L (3.5-5.1) mmol/L Chloride 104 (98-110) mmol/L Carbon Dioxide 23 (21-31) mmol/L BUN 8 (6.0-23.0) mg/dL Creatinine 0.5 L (0.6-1.5) mg/dL Est Cr Clr Drug Dosing 52.18 mL/min Estimated GFR (MDRD) > 60.0 ml/min Glucose 91 (60-110) mg/dL Calcium 7.7 L (8.8-10.8) mg/dL Magnesium 1.2 L (1.5-2.3) mEq/L Med Orders - Current: Current Medications Acetaminophen (Tylenol) 650 mg PO Q6H PRN PRN Reason: Pain Last Admin: 11/29/16 04:31 Dose: 650 mg Aspirin (Halfprin) 81 mg PO DAILY [facility] Bisacodyl (Dulcolax) 10 mg RECTAL BID PRN PRN Reason: Constipation Last Admin: 11/27/16 10:12 Dose: 10 mg Docusate Sodium (Colace) 100 mg PO BID [facility] Last Admin: 11/28/16 20:41 Dose: Not Given Heparin Sodium (Porcine) (Heparin Sodium) 5,000 units SUBCUT BID [facility] Last Admin: 11/28/16 20:35 Dose: 5,000 units Pantoprazole Sodium 40 mg/ (Sodium Chloride) 10 mls @ 300 mls/hr IVPUSH Q24H [facility] Last Admin: 11/28/16 23:26 Dose: 300 mls/hr Magnesium Sulfate 4 gm/ Premix 100 mls @ 50 mls/hr IV ONETIME ONE Stop: 11/29/16 10:46 Metoclopramide HCl (Reglan) 5 mg IVPUSH Q8H PRN PRN Reason: n/v Metoprolol Succinate (Toprol Xl) 25 mg PO DAILY [facility] Last Admin: 11/28/16 13:25 Dose: 25 mg Ondansetron HCl (Zofran) 4 mg IVPUSH Q4H PRN PRN Reason: Nausea/Vomiting Last Admin: 11/28/16 12:03 Dose: 4 mg Polyethylene Glycol (Miralax) 17 gm PO DAILY PRN PRN Reason: Constipation Last Admin: 11/27/16 10:02 Dose: 17 gm Sertraline HCl (Zoloft) 50 mg PO DAILY [facility] Last Admin: 11/28/16 09:02 Dose: 50 mg Discontinued Medications Benzocaine (Hurricaine One 20%) 1 each MUCMEM ONETIME ONE Stop: 11/26/16 16:38 Last Admin: 11/26/16 17:00 Dose: 1 each Benzocaine (Hurricaine One 20%) Confirm Administered Dose 1 each MUCMEM .STK- MED ONE Stop: 11/26/16 16:41 Last Admin: 11/26/16 17:20 Dose: Not Given Docusate Sodium (Colace) 200 mg PO BID [facility] Last Admin: 11/27/16 20:12 Dose: 200 mg Hydromorphone HCl (Dilaudid) 0.5 mg IVPUSH ONETIME ONE Stop: 11/25/16 21:35 Last Admin: 11/25/16 21:41 Dose: 0.5 mg Sodium Chloride (Normal Saline) 1,000 mls @ 999 mls/hr IV STAT ONE Stop: 11/25/16 18:55 Last Admin: 11/25/16 18:31 Dose: 999 mls/hr Sodium Chloride (Normal Saline) 1,000 mls @ 250 mls/hr IV STAT ONE Stop: 11/25/16 22:42 Last Admin: 11/25/16 19:12 Dose: 250 mls/hr Sodium Chloride (Sodium Chloride 0.45%) 1,000 mls @ 125 mls/hr IV ASDIRECTED [facility] Last Admin: 11/28/16 03:24 Dose: 125 mls/hr Ciprofloxacin/Dextrose 400 mg/ (Premix) 200 mls @ 200 mls/hr IV Q12H [facility] Last Admin: 11/26/16 12:58 Dose: 200 mls/hr Metronidazole 500 mg/ Premix 100 mls @ 100 mls/hr IV QID [facility] Last Admin: 11/26/16 18:15 Dose: 100 mls/hr Potassium Chloride/Sodium Chloride (Normal Saline With 40 Meq Kcl) 1,000 mls @ 150 mls/hr IV ASDIRECTED [facility] Stop: 11/28/16 13:54 Last Admin: 11/28/16 07:20 Dose: 150 mls/hr Metoclopramide HCl (Reglan) 10 mg IVPUSH Q8H PRN PRN Reason: n/v Last Admin: 11/27/16 02:48 Dose: 10 mg Mirtazapine (Remeron) 15 mg PO BEDTIME [facility] Last Admin: 11/26/16 20:11 Dose: 15 mg Morphine Sulfate (Morphine) 2 mg IVPUSH ONETIME ONE Stop: 11/25/16 17:56 Last Admin: 11/25/16 18:26 Dose: 2 mg Morphine Sulfate (Morphine) 2 mg IVPUSH ONETIME ONE Stop: 11/25/16 19:17 Last Admin: 11/25/16 19:20 Dose: 2 mg Morphine Sulfate (Morphine) 2 mg IVPUSH Q2H PRN PRN Reason: Pain Last Admin: 11/26/16 08:18 Dose: 2 mg Ondansetron HCl (Zofran) 4 mg IVPUSH ONETIME ONE Stop: 11/25/16 17:56 Last Admin: 11/25/16 18:22 Dose: 4 mg Ondansetron HCl (Zofran) 4 mg IVPUSH ONETIME ONE Stop: 11/25/16 21:48 Last Admin: 11/25/16 21:53 Dose: 4 mg Ondansetron HCl (Zofran) 4 mg IVPUSH ONETIME ONE Stop: 11/26/16 15:37 Last Admin: 11/26/16 15:45 Dose: Not Given Potassium Chloride (Klor-Con M20) 40 meq PO ONETIME ONE Stop: 11/29/16 07:53 - Exam General: alert, oriented Lungs: Clear to auscultation, Normal respiratory effort Cardiovascular: regular rate, regular rhythm Abdomen: bowel sounds present, soft, no tenderness, no distension Extremities: no edema - Problem List Review Problem List Initiated/Reviewed/Updated: Yes - My Orders Last 24 Hours: My Active Orders 11/28/16 07:51 Docusate Sodium [Colace] 100 mg PO BID 11/28/16 12:59 Telemetry Monitoring [Cardiac Monitoring] [RC] Q8H 11/28/16 13:00 Metoprolol Succinate [Toprol XL] 25 mg PO DAILY 11/28/16 Dinner Full Liquid Diet [DIET] 11/29/16 08:47 Magnesium Sulfate/Water [Magnesium Sulfate 4 GM in Water 100 ML] 4 gm Premix Bag 1 bag IV ONETIME 11/29/16 09:00 Aspirin [Halfprin] 81 mg PO DAILY 11/30/16 05:11 BASIC METABOLIC PANEL,BMP [CHEM] AM CBC WITH AUTO DIFF [HEME] AM 12/01/16 05:11 BASIC METABOLIC PANEL,BMP [CHEM] AM CBC WITH AUTO DIFF [HEME] AM - Plan Plan:: 86 yo female admitted for ileus. Ileus: resolved, patient is having multiple loose stools. will advance to regular diet Generalized weakness: will consult PT. patient may need SNF placement.
[2016-11-29] MEDS: Metoprolol Succinate 25 MG Tab.ER PO SCH (09:08)
[2016-11-29] MEDS: Heparin Sodium 5,000 Units/ML Vial SUBCUT SCH ×2 (09:08→20:29)
[2016-11-29] MEDS: Sertraline 25 MG Tab PO SCH (09:09)
[2016-11-29] MEDS: Aspirin 81 MG Tab.EC PO SCH (09:09)
[2016-11-29] MEDS ORDERED: Sodium Chloride 0.9% with KCl 1,000 ML IV SCH (11:30)
[2016-11-29] MEDS: Docusate Sodium 100 MG Cap PO SCH ×2 (18:53→20:13)
[2016-11-29] MEDS: Pantoprazole 40 MG in Sodium Chloride 0.9% 10 ML IVPUSH SCH (23:30)
[2016-11-30] MEDS: Acetaminophen 325 MG Tab PO PRN ×2 (01:38→11:38)
[2016-11-30 07:05] LABS: CHLORIDE,CL 104 mmol/L (98-110); SODIUM,NA 135 mmol/L (136-146)
[2016-11-30] MEDS: Metoprolol Succinate 25 MG Tab.ER PO SCH (09:50)
[2016-11-30] MEDS: Aspirin 81 MG Tab.EC PO SCH (09:51)
[2016-11-30] MEDS: Sertraline 25 MG Tab PO SCH (09:51)
[2016-11-30] MEDS: Heparin Sodium 5,000 Units/ML Vial SUBCUT SCH ×2 (09:51→21:19)
[2016-11-30] MEDS: Docusate Sodium 100 MG Cap PO SCH ×2 (09:54→21:15)
--- NOTE | 2016-11-30 10:17 | PCM.PN ---
- General Info Date of Service: 11/30/16 Admission Dx/Problem (Free Text): Abdominal pain--ileus vs sbo Subjective Update: Patient is doing fair today. Reports she is having loose stools and some abdominal pain. "I hurt all over". Back pain is worst. Denies chest pain or SOB. No family at bedside during first rounds, will speak with when they arrive. [place] Application was given to family over the weekend. Functional Status: Reports: pain controlled, tolerating diet, ambulating, urinating - Review of Systems General: Reports: weakness, fatigue. Denies: fever HEENT: Reports: no symptoms Pulmonary: Reports: no symptoms. Denies: shortness of breath, cough, sputum Cardiovascular: Reports: no symptoms. Denies: chest pain Gastrointestinal: Reports: Abdominal pain (with some loose stools.). Denies: Nausea, Vomiting Genitourinary: Reports: no symptoms Musculoskeletal: Reports: back pain Skin: Reports: no symptoms Neurological: Reports: no symptoms Psychiatric: Reports: no symptoms - Patient Data Vitals - most recent: Last Vital Signs Temp 99.4 F 11/30/16 08:00 Pulse 68 11/30/16 09:50 Resp 20 11/30/16 08:00 BP 126/60 11/30/16 09:50 Pulse Ox 94 L 11/30/16 08:00 Weight - most recent: 42.5 kg I&O - last 24 hours: Intake & Output 11/29/16 11/30/16 11/30/16 22:59 06:59 14:59 Intake Total 1450 340 Output Total 650 550 Balance 800 -210 Lab Results last 24 hrs: Laboratory Results - last 24 hr 11/30/16 11/30/16 11/30/16 Range/Units 06:12 06:12 06:12 WBC 10.61 (4.0-11.0) K/uL RBC 3.92 L (4.30-5.90) M/uL Hgb 12.1 (12.0-16.0) g/dL Hct 36.0 (36.0-46.0) % MCV 91.8 (80.0-98.0) fL MCH 30.9 (27.0-32.0) pg MCHC 33.6 (31.0-37.0) g/dL RDW Std Deviation 44.4 (28.0-62.0) fl RDW Coeff of Lissa 13 (11.0-15.0) % Plt Count 256 (150-400) K/uL MPV 9.40 (7.40-12.00) fL Neut % (Auto) 67.4 (48.0-80.0) % Lymph % (Auto) 17.9 (16.0-40.0) % [place] % (Auto) 11.9 (0.0-15.0) % Eos % (Auto) 2.3 (0.0-7.0) % Baso % (Auto) 0.5 (0.0-1.5) % Neut # 7.2 H (1.4-5.7) K/uL Lymph # 1.9 (0.6-2.4) K/uL [place] # 1.3 H (0.0-0.8) K/uL Eos # 0.2 (0.0-0.7) K/uL Baso # 0.1 (0.0-0.1) K/uL Nucleated RBC % 0.0 /100WBC Nucleated RBCs # 0 K/uL Sodium 135 L (136-146) mmol/L Potassium 3.5 (3.5-5.1) mmol/L Chloride 104 (98-110) mmol/L Carbon Dioxide 23 (21-31) mmol/L BUN 5 L (6.0-23.0) mg/dL Creatinine 0.5 L (0.6-1.5) mg/dL Est Cr Clr Drug Dosing 52.18 mL/min Estimated GFR (MDRD) > 60.0 ml/min Glucose 88 (60-110) mg/dL Calcium 7.5 L (8.8-10.8) mg/dL Magnesium 1.8 (1.5-2.3) mEq/L Med Orders - Current: Current Medications Acetaminophen (Tylenol) 650 mg PO Q6H PRN PRN Reason: Pain Last Admin: 11/30/16 01:38 Dose: 650 mg Aspirin (Halfprin) 81 mg PO DAILY [facility] Last Admin: 11/30/16 09:51 Dose: 81 mg Bisacodyl (Dulcolax) 10 mg RECTAL BID PRN PRN Reason: Constipation Last Admin: 11/27/16 10:12 Dose: 10 mg Docusate Sodium (Colace) 100 mg PO BID [facility] Last Admin: 11/30/16 09:54 Dose: Not Given Heparin Sodium (Porcine) (Heparin Sodium) 5,000 units SUBCUT BID [facility] Last Admin: 11/30/16 09:51 Dose: 5,000 units Pantoprazole Sodium 40 mg/ (Sodium Chloride) 10 mls @ 300 mls/hr IVPUSH Q24H [facility] Last Admin: 11/29/16 23:30 Dose: 300 mls/hr Metoclopramide HCl (Reglan) 5 mg IVPUSH Q8H PRN PRN Reason: n/v Metoprolol Succinate (Toprol Xl) 25 mg PO DAILY [facility] Last Admin: 11/30/16 09:50 Dose: 25 mg Ondansetron HCl (Zofran) 4 mg IVPUSH Q4H PRN PRN Reason: Nausea/Vomiting Last Admin: 11/28/16 12:03 Dose: 4 mg Polyethylene Glycol (Miralax) 17 gm PO DAILY PRN PRN Reason: Constipation Last Admin: 11/27/16 10:02 Dose: 17 gm Sertraline HCl (Zoloft) 50 mg PO DAILY [facility] Last Admin: 11/30/16 09:51 Dose: 50 mg Discontinued Medications Benzocaine (Hurricaine One 20%) 1 each [facility] ONETIME ONE Stop: 11/26/16 16:38 Last Admin: 11/26/16 17:00 Dose: 1 each Benzocaine (Hurricaine One 20%) Confirm Administered Dose 1 each [facility] .STK- MED ONE Stop: 11/26/16 16:41 Last Admin: 11/26/16 17:20 Dose: Not Given Docusate Sodium (Colace) 200 mg PO BID [facility] Last Admin: 11/27/16 20:12 Dose: 200 mg Hydromorphone HCl (Dilaudid) 0.5 mg IVPUSH ONETIME ONE Stop: 11/25/16 21:35 Last Admin: 11/25/16 21:41 Dose: 0.5 mg Sodium Chloride (Normal Saline) 1,000 mls @ 999 mls/hr IV STAT ONE Stop: 11/25/16 18:55 Last Admin: 11/25/16 18:31 Dose: 999 mls/hr Sodium Chloride (Normal Saline) 1,000 mls @ 250 mls/hr IV STAT ONE Stop: 11/25/16 22:42 Last Admin: 11/25/16 19:12 Dose: 250 mls/hr Sodium Chloride (Sodium Chloride 0.45%) 1,000 mls @ 125 mls/hr IV ASDIRECTED [facility] Last Admin: 11/28/16 03:24 Dose: 125 mls/hr Ciprofloxacin/Dextrose 400 mg/ (Premix) 200 mls @ 200 mls/hr IV Q12H [facility] Last Admin: 11/26/16 12:58 Dose: 200 mls/hr Metronidazole 500 mg/ Premix 100 mls @ 100 mls/hr IV QID [facility] Last Admin: 11/26/16 18:15 Dose: 100 mls/hr Potassium Chloride/Sodium Chloride (Normal Saline With 40 Meq Kcl) 1,000 mls @ 150 mls/hr IV ASDIRECTED [facility] Stop: 11/28/16 13:54 Last Admin: 11/28/16 07:20 Dose: 150 mls/hr Magnesium Sulfate 4 gm/ Premix 100 mls @ 50 mls/hr IV ONETIME ONE Stop: 11/29/16 10:46 Last Admin: 11/29/16 09:08 Dose: 50 mls/hr Potassium Chloride/Sodium Chloride (Normal Saline With 40 Meq Kcl) 1,000 mls @ 125 mls/hr IV ASDIRECTED [facility] Stop: 11/29/16 19:29 Last Infusion: 11/29/16 20:45 Dose: Infused Metoclopramide HCl (Reglan) 10 mg IVPUSH Q8H PRN PRN Reason: n/v Last Admin: 11/27/16 02:48 Dose: 10 mg Mirtazapine (Remeron) 15 mg PO BEDTIME [facility] Last Admin: 11/26/16 20:11 Dose: 15 mg Morphine Sulfate (Morphine) 2 mg IVPUSH ONETIME ONE Stop: 11/25/16 17:56 Last Admin: 11/25/16 18:26 Dose: 2 mg Morphine Sulfate (Morphine) 2 mg IVPUSH ONETIME ONE Stop: 11/25/16 19:17 Last Admin: 11/25/16 19:20 Dose: 2 mg Morphine Sulfate (Morphine) 2 mg IVPUSH Q2H PRN PRN Reason: Pain Last Admin: 11/26/16 08:18 Dose: 2 mg Ondansetron HCl (Zofran) 4 mg IVPUSH ONETIME ONE Stop: 11/25/16 17:56 Last Admin: 11/25/16 18:22 Dose: 4 mg Ondansetron HCl (Zofran) 4 mg IVPUSH ONETIME ONE Stop: 11/25/16 21:48 Last Admin: 11/25/16 21:53 Dose: 4 mg Ondansetron HCl (Zofran) 4 mg IVPUSH ONETIME ONE Stop: 11/26/16 15:37 Last Admin: 11/26/16 15:45 Dose: Not Given Potassium Chloride (Klor-Con M20) 40 meq PO ONETIME ONE Stop: 11/29/16 07:53 Last Admin: 11/29/16 09:09 Dose: 40 meq - Exam General: alert, cooperative Neck: supple Lungs: Clear to auscultation, Normal respiratory effort. No: Crackles Cardiovascular: regular rate, regular rhythm Abdomen: bowel sounds present, soft, no distension, tenderness (lower abdomen tenderness) Extremities: no edema, normal pulses Skin: warm, dry Neurological: no new focal deficit Psy/Mental Status: alert, normal affect, normal mood - Problem List & Annotations (1) Abdominal pain SNOMED Code(s): 68492232 Code(s): R10.9 - UNSPECIFIED ABDOMINAL PAIN Status: Acute Priority: High Current Visit: Yes Qualifiers: Abdominal location: lower abdomen, unspecified Qualified Code(s): R10.30 - Lower abdominal pain, unspecified (2) Constipation SNOMED Code(s): 21264724 Code(s): K59.00 - CONSTIPATION, UNSPECIFIED Status: Acute Priority: High Current Visit: Yes Qualifiers: Constipation type: unspecified constipation type Qualified Code(s): K59.00 - Constipation, unspecified (3) Physical deconditioning SNOMED Code(s): 11448794734365 Code(s): R53.81 - OTHER MALAISE Status: Acute Current Visit: Yes - Problem List Review Problem List Initiated/Reviewed/Updated: Yes - Plan Plan:: 86 yo female admitted for ileus. 1. Ileus: resolved, continues to have multiple loose stools. Tolerating regular diet well. Up ambulating with FWW. Feels weak still. 2. Generalized weakness: PT recommended SNF for strengthening. She has been refusing to ambulate with PT today. Family given [facility] application over the weekend. Spoke with family this afternoon. No room available at [facility] and family states "she doesn't want to go anyways." Discussed with them options for Home health with PT/OT to assist with strengthening. Son, Junaid reports she will use them for about a week and then not let them back in the house. We did speak briefly about Hospice, but they are not interested at this time. Will provide them with private care givers numbers and hope for discharge in the am. 3. Severe osteoarthritis: Will restart Gabapentin and [place] PRN today. Monitor pain control. Encouraged good oral intake to stay hydrated and importance of bowel regimen with narcotic use. 4. Poor appetite: Will restart Remeron for appetite stimulant. This was initially started, but patient became NPO secondary to ileus so she never fully received this. VTE: heparin Dispo:
[2016-11-30] MEDS ORDERED: Calcium Carbonate 500 MG Tab.Chew PO ONE (10:18)
[2016-11-30] MEDS: Gabapentin 100 MG Cap PO SCH ×3 (13:17→23:40)
[2016-11-30] MEDS: Acetaminophen/HYDROcodone 325-5 MG Tab PO PRN ×2 (13:17→21:15)
[2016-11-30] MEDS ORDERED: Mirtazapine 15 MG Tab.DIS PO SCH (21:00)
[2016-11-30] MEDS: Pantoprazole 40 MG in Sodium Chloride 0.9% 10 ML IVPUSH SCH (23:39)
[2016-12-01] MEDS: Gabapentin 100 MG Cap PO SCH ×2 (06:04→13:14)
[2016-12-01 06:05] LABS: CHLORIDE,CL 108 mmol/L (98-110); SODIUM,NA 142 mmol/L (136-146)
[2016-12-01] MEDS ORDERED: Calcium Carbonate 500 MG Tab.Chew PO ONE (08:00)
[2016-12-01] MEDS: Aspirin 81 MG Tab.EC PO SCH (08:43)
[2016-12-01] MEDS: Sertraline 25 MG Tab PO SCH (08:43)
[2016-12-01] MEDS: Docusate Sodium 100 MG Cap PO SCH (08:43)
[2016-12-01] MEDS: Metoprolol Succinate 25 MG Tab.ER PO SCH (08:44)
[2016-12-01] MEDS: Acetaminophen/HYDROcodone 325-5 MG Tab PO PRN (08:44)
[2016-12-01] MEDS: Heparin Sodium 5,000 Units/ML Vial SUBCUT SCH (08:45)
[2016-12-01 11:31] VITALS: BP 100/55
--- NOTE | 2016-12-01 12:15 | PCM.DCSUM1 ---
Discharge Summary - Hospital Course Brief History: This 86 year old female admitted for abdominal pain on 11/25/2016. She has been having decreased appetite past few days with nausea and diffuse abdominal pain. She has been loosing weight for five years. She lives by herself and independent. The family noticed she has not been eating much. Her meals are still in the fridge. She describes the pain diffusely in the abdomen. She does not recall when her last BM was. In the ED, Abdominal xray revealed gas present within the small bowel and colon, "while non-specific, the bowel gas pattern is not highly suggestive of a bowel obstruction, no free air. Abdominal CT without contrast shows constipation, new pulmonary nodule, small amount of air in the the bladder and cardiomegaly. On admission her wbc was elevated from 8.3 to 11.5. UA shows moderate blood. She was admitted for constiapation and abdominal pain. - Discharge Data Discharge Date: 12/01/16 Discharge Disposition: Home, W Home Health Agency 06 Condition: Good - Discharge Diagnosis/Problem(s) (1) Abdominal pain SNOMED Code(s): 74915100 ICD Code: R10.9 - UNSPECIFIED ABDOMINAL PAIN Status: Resolved Priority: High Current Visit: Yes Qualifiers: Abdominal location: lower abdomen, unspecified Qualified Code(s): R10.30 - Lower abdominal pain, unspecified (2) Constipation SNOMED Code(s): 60661657 ICD Code: K59.00 - CONSTIPATION, UNSPECIFIED Status: Resolved Priority: High Current Visit: Yes Qualifiers: Constipation type: unspecified constipation type Qualified Code(s): K59.00 - Constipation, unspecified (3) Physical deconditioning SNOMED Code(s): 56277921389636 ICD Code: R53.81 - OTHER MALAISE Status: Acute Current Visit: Yes (4) Osteoarthritis SNOMED Code(s): 218065403 ICD Code: M19.90 - UNSPECIFIED OSTEOARTHRITIS, UNSPECIFIED SITE Status: Chronic Current Visit: No - Patient Summary/Data Consults: Consultations 11/29/16 08:48 PT Evaluation and Treatment [CONS] Routine 11/30/16 13:20 Consult to Ship Engineer [CONS] Routine - Patient Instructions Diet: Regular Diet as Tolerated, Drink 8-10+ Glasses/Day Activity: As Tolerated Showering/Bathing: May Shower Notify Provider of: Fever, Increased Pain, Swelling and Redness, Drainage, Nausea and/or Vomiting Other/Special Instructions: Stay well hydrated to prevent constipation. - Discharge Plan Prescriptions/Med Rec: Docusate Sodium [Colace] 100 mg PO BID #60 cap Mirtazapine [Remeron] 15 mg PO BEDTIME #30 tablet Sertraline [Zoloft] 50 mg PO DAILY #60 tablet Home Medications: Home Meds Gabapentin [Neurontin] 100 mg PO QID 09/15/14 [History] Hydrocodone/Acetaminophen [Lortab 5-325 mg Tablet] 5 - 325 mg PO Q6H PRN [History] Aspirin [Adult Low Dose Aspirin EC] 81 mg PO DAILY 03/27/15 [History] Erythromycin Base [Erythromycin 0.5% Ophth Oint] 1 applic OP Q12H 03/27/15 [ History] Polyethylene Glycol 3350 [Gavilax] 8.5 gm PO DAILY 03/27/15 [History] Cholecalciferol (Vitamin D3) [Vitamin D3] 1,000 units PO DAILY 03/19/16 [History ] Acetaminophen [Tylenol] 650 mg PO Q4H PRN #0 tablet 03/23/16 [Rx] Ibuprofen [Motrin] 200 mg PO BID tablet 03/23/16 [Rx] Nitroglycerin [IJP: Nitroglycerin] 0.4 mg SL Q5M PRN #1 bottle 03/23/16 [Rx] Simethicone 80 mg PO TID PRN #0 tab.chew 03/23/16 [Rx] Metoprolol Succinate [Toprol XL] 25 mg PO DAILY 11/25/16 [History] Docusate Sodium [Colace] 100 mg PO BID #60 cap 12/01/16 [Rx] Mirtazapine [Remeron] 15 mg PO BEDTIME #30 tablet 12/01/16 [Rx] Sertraline [Zoloft] 50 mg PO DAILY #60 tablet 12/01/16 [Rx] Patient Handouts: Constipation, Adult, Mirtazapine tablets, Abdominal Pain, Adult, [id number], Sertraline tablets, Docusate capsules Referrals: [facility] [Outside] Leopoldo Barnes MD [Ordering Only Provider] - 12/04/16 10:30 am - Discharge Summary/Plan Comment DC Time >30 min.: No Discharge Summary/Plan Comment: Discharge Diagnoses: Ileus-resolved Severe osteoarthritis narcotic dependent Deconditioning due to recent illness and hospitalization. Frida was admitted initially with constipation which progressed to an ileus. Dr. Valle, general surgery was consult. NG tube was placed and she was treated with conservative treatment. After stomach decompression and bowel rest , she started having BMs. She had diarrhea for approximately 2 days, abdominal pain subsided and was tolerating regular diet well. She was having continued generalized pain, most in her back which is her normal pain from osteoarthritis. She was restarted on her [place] 5/325 every 6 hours PRN, after starting this she has felt much better. She has been up in the chair eating breakfast and ambulating with nursing staff with assistance of FWW. She reports she is feeling much better today. Remeron was started to stimulate appetite. Will continue this at home and monitor response. For discharge home, she was encouraged to continue to drink plenty of fluids to keep hydrated and prevent constipation. She was instructed to take Colace BID to prevent constipation especially while taking narcotics on a regular basis. Miralax can be added to bowel regimen PRN. Frida will be discharged home today with Home health with PT/OT due to deconditioning secondary to recent illness and hospitalization. PT needed for strengthening and OT needed for home assessment. She is homebound secondary to the inability ambulate without the assistance of a FWW and a caregiver and pain seoncdary to osteoarthritis. Home Health plan of care to be overseen by PCP, Dr. Barnes. - General Info Date of Service: 12/01/16 Admission Dx/Problem (Free Text: Abdominal pain--ileus vs sbo Subjective Update: Sitting up in chair eating breakfast, toast and peanut butter. Reports pain is much better, still there but tolerable. Much more cheerful today and talkative. She is excited to go home today. She has been up with nursing with FWW. Denies chest pain or SOB. No further diarrhea. Functional Status: Reports: pain controlled, tolerating diet, ambulating, urinating - Review of Systems General: Reports: Fatigue (improving). Denies: Fever, Weakness HEENT: Reports: no symptoms. Denies: ear pain, sore throat, rhinitis, visual changes Pulmonary: Reports: no symptoms. Denies: shortness of breath, cough, sputum Cardiovascular: Reports: No Symptoms. Denies: Chest Pain, Edema Gastrointestinal: Reports: Abdominal pain (intermittently, but very much improved. "Preethi been through a lot this week, I will slowly get better."). Denies: Diarrhea, Nausea, Vomiting Genitourinary: Reports: no symptoms. Denies: dysuria, frequency, burning, pain Musculoskeletal: Reports: back pain (R hip and back pain, improved with restarting pain medications) Neurological: Reports: No Symptoms Psychiatric: Reports: no symptoms - Patient Data Vitals - Most Recent: Last Vital Signs Temp 96.6 F 12/01/16 11:29 Pulse 75 12/01/16 11:29 Resp 22 H 12/01/16 11:29 BP 100/55 L 12/01/16 11:29 Pulse Ox 90 L 12/01/16 11:29 Weight - Most Recent: 42.5 kg I&O - Last 24 hours: Intake & Output 11/30/16 12/01/16 12/01/16 22:59 06:59 14:59 Intake Total 110 500 Output Total 300 1100 Balance -190 -600 Lab Results - Last 24 hrs: Laboratory Results - last 24 hr 12/01/16 12/01/16 Range/Units 05:33 05:33 WBC 8.32 (4.0-11.0) K/uL RBC 3.73 L (4.30-5.90) M/uL Hgb 11.6 L (12.0-16.0) g/dL Hct 34.2 L (36.0-46.0) % MCV 91.7 (80.0-98.0) fL MCH 31.1 (27.0-32.0) pg MCHC 33.9 (31.0-37.0) g/dL RDW Std Deviation 45.0 (28.0-62.0) fl RDW Coeff of Lissa 13 (11.0-15.0) % Plt Count 236 (150-400) K/uL MPV 8.90 (7.40-12.00) fL Neut % (Auto) 52.3 (48.0-80.0) % Lymph % (Auto) 26.8 (16.0-40.0) % [place] % (Auto) 12.1 (0.0-15.0) % Eos % (Auto) 8.2 H (0.0-7.0) % Baso % (Auto) 0.6 (0.0-1.5) % Neut # 4.4 (1.4-5.7) K/uL Lymph # 2.2 (0.6-2.4) K/uL [place] # 1.0 H (0.0-0.8) K/uL Eos # 0.7 (0.0-0.7) K/uL Baso # 0.1 (0.0-0.1) K/uL Nucleated RBC % 0.0 /100WBC Nucleated RBCs # 0 K/uL Sodium 142 (136-146) mmol/L Potassium 3.5 (3.5-5.1) mmol/L Chloride 108 (98-110) mmol/L Carbon Dioxide 27 (21-31) mmol/L BUN 6 (6.0-23.0) mg/dL Creatinine 0.6 (0.6-1.5) mg/dL Est Cr Clr Drug Dosing 43.48 mL/min Estimated GFR (MDRD) > 60.0 ml/min Glucose 79 (60-110) mg/dL Calcium 7.9 L (8.8-10.8) mg/dL Med Orders - Current: Current Medications Acetaminophen (Tylenol) 650 mg PO Q6H PRN PRN Reason: Pain Last Admin: 11/30/16 11:38 Dose: 650 mg Acetaminophen/Hydrocodone Bitart ([place] 325-5 Mg) 1 tab PO Q6H PRN PRN Reason: Pain Last Admin: 12/01/16 08:44 Dose: 1 tab Aspirin (Halfprin) 81 mg PO DAILY [facility] Last Admin: 12/01/16 08:43 Dose: 81 mg Bisacodyl (Dulcolax) 10 mg RECTAL BID PRN PRN Reason: Constipation Last Admin: 11/27/16 10:12 Dose: 10 mg Docusate Sodium (Colace) 100 mg PO BID [facility] Last Admin: 12/01/16 08:43 Dose: 100 mg Gabapentin (Neurontin) 100 mg PO QID [facility] Last Admin: 12/01/16 06:04 Dose: 100 mg Heparin Sodium (Porcine) (Heparin Sodium) 5,000 units SUBCUT BID [facility] Last Admin: 12/01/16 08:45 Dose: 5,000 units Pantoprazole Sodium 40 mg/ (Sodium Chloride) 10 mls @ 300 mls/hr IVPUSH Q24H [facility] Last Admin: 11/30/16 23:39 Dose: 300 mls/hr Metoclopramide HCl (Reglan) 5 mg IVPUSH Q8H PRN PRN Reason: n/v Metoprolol Succinate (Toprol Xl) 25 mg PO DAILY [facility] Last Admin: 12/01/16 08:44 Dose: 25 mg Mirtazapine (Remeron) 15 mg PO BEDTIME [facility] Last Admin: 11/30/16 21:15 Dose: 15 mg Ondansetron HCl (Zofran) 4 mg IVPUSH Q4H PRN PRN Reason: Nausea/Vomiting Last Admin: 11/28/16 12:03 Dose: 4 mg Polyethylene Glycol (Miralax) 17 gm PO DAILY PRN PRN Reason: Constipation Last Admin: 11/27/16 10:02 Dose: 17 gm Sertraline HCl (Zoloft) 50 mg PO DAILY [facility] Last Admin: 12/01/16 08:43 Dose: 50 mg Discontinued Medications Benzocaine (Hurricaine One 20%) 1 each [facility] ONETIME ONE Stop: 11/26/16 16:38 Last Admin: 11/26/16 17:00 Dose: 1 each Benzocaine (Hurricaine One 20%) Confirm Administered Dose 1 each MUCMEM .STK- MED ONE Stop: 11/26/16 16:41 Last Admin: 11/26/16 17:20 Dose: Not Given Calcium Carbonate/Glycine (Tums) 1,000 mg PO ONETIME ONE Stop: 11/30/16 10:19 Last Admin: 11/30/16 10:39 Dose: 1,000 mg Calcium Carbonate/Glycine (Tums) 1,000 mg PO ONETIME ONE Stop: 12/01/16 08:01 Last Admin: 12/01/16 08:43 Dose: 1,000 mg Docusate Sodium (Colace) 200 mg PO BID [facility] Last Admin: 11/27/16 20:12 Dose: 200 mg Hydromorphone HCl (Dilaudid) 0.5 mg IVPUSH ONETIME ONE Stop: 11/25/16 21:35 Last Admin: 11/25/16 21:41 Dose: 0.5 mg Sodium Chloride (Normal Saline) 1,000 mls @ 999 mls/hr IV STAT ONE Stop: 11/25/16 18:55 Last Admin: 11/25/16 18:31 Dose: 999 mls/hr Sodium Chloride (Normal Saline) 1,000 mls @ 250 mls/hr IV STAT ONE Stop: 11/25/16 22:42 Last Admin: 11/25/16 19:12 Dose: 250 mls/hr Sodium Chloride (Sodium Chloride 0.45%) 1,000 mls @ 125 mls/hr IV ASDIRECTED [facility] Last Admin: 11/28/16 03:24 Dose: 125 mls/hr Ciprofloxacin/Dextrose 400 mg/ (Premix) 200 mls @ 200 mls/hr IV Q12H [facility] Last Admin: 11/26/16 12:58 Dose: 200 mls/hr Metronidazole 500 mg/ Premix 100 mls @ 100 mls/hr IV QID [facility] Last Admin: 11/26/16 18:15 Dose: 100 mls/hr Potassium Chloride/Sodium Chloride (Normal Saline With 40 Meq Kcl) 1,000 mls @ 150 mls/hr IV ASDIRECTED [facility] Stop: 11/28/16 13:54 Last Admin: 11/28/16 07:20 Dose: 150 mls/hr Magnesium Sulfate 4 gm/ Premix 100 mls @ 50 mls/hr IV ONETIME ONE Stop: 11/29/16 10:46 Last Admin: 11/29/16 09:08 Dose: 50 mls/hr Potassium Chloride/Sodium Chloride (Normal Saline With 40 Meq Kcl) 1,000 mls @ 125 mls/hr IV ASDIRECTED [facility] Stop: 11/29/16 19:29 Last Infusion: 11/29/16 20:45 Dose: Infused Metoclopramide HCl (Reglan) 10 mg IVPUSH Q8H PRN PRN Reason: n/v Last Admin: 11/27/16 02:48 Dose: 10 mg Mirtazapine (Remeron) 15 mg PO BEDTIME [facility] Last Admin: 11/26/16 20:11 Dose: 15 mg Morphine Sulfate (Morphine) 2 mg IVPUSH ONETIME ONE Stop: 11/25/16 17:56 Last Admin: 11/25/16 18:26 Dose: 2 mg Morphine Sulfate (Morphine) 2 mg IVPUSH ONETIME ONE Stop: 11/25/16 19:17 Last Admin: 11/25/16 19:20 Dose: 2 mg Morphine Sulfate (Morphine) 2 mg IVPUSH Q2H PRN PRN Reason: Pain Last Admin: 11/26/16 08:18 Dose: 2 mg Ondansetron HCl (Zofran) 4 mg IVPUSH ONETIME ONE Stop: 11/25/16 17:56 Last Admin: 11/25/16 18:22 Dose: 4 mg Ondansetron HCl (Zofran) 4 mg IVPUSH ONETIME ONE Stop: 11/25/16 21:48 Last Admin: 11/25/16 21:53 Dose: 4 mg Ondansetron HCl (Zofran) 4 mg IVPUSH ONETIME ONE Stop: 11/26/16 15:37 Last Admin: 11/26/16 15:45 Dose: Not Given Potassium Chloride (Klor-Con M20) 40 meq PO ONETIME ONE Stop: 11/29/16 07:53 Last Admin: 11/29/16 09:09 Dose: 40 meq - Exam General: Reports: alert, oriented, cooperative HEENT: Reports: Pupils equal, Pupils reactive, EOMI, Mucous membr. moist/pink Neck: Reports: supple Lungs: Reports: Clear to auscultation, Normal respiratory effort Cardiovascular: Reports: Regular Rate, Regular Rhythm, No Murmurs Abdomen: Reports: bowel sounds present, soft, no tenderness, no distension Extremities: Reports: no edema, normal pulses Neurological: Reports: no new focal deficit Psy/Mental Status: Reports: alert, normal affect, normal mood *Q Meaningful Use (DIS) - VTE *Q VTE Criteria *Q: - Stroke *Q Stroke Criteria *Q: - AMI *Q AMI Criteria *Q:
== END 2016-12-01 13:40 | disposition home or self-care (01) | DRG 392 ==
LOC: MW.ED 17:33 → UNDOADMIN 17:34 → MW.MS 17:34 → UNDOADMOB 21:26 → MW.MS 21:26 → INTOOBSV 21:36 → MW.MS 21:36 → UNDOADMOB 21:36 → MW.MS 21:37 → UNDOADMOB 21:37 → OBSVTOIN 11-27 10:55 → INTOOBSV 11-27 10:55 → MW.MS 11-28 03:22 → UNDOADMIN 11-28 03:22 → UNDODISIN 12-01 13:40
PROVIDERS: ADMIT Internal Medicine; ATTEND Internal Medicine
PROC: 0DH67UZ Insertion of Feeding Device into Stomach, Via Natural or Artificial Opening (ICD-10-PCS; principal; 2016-11-26)
PROC: 3E0G76Z Introduction of Nutritional Substance into Upper GI, Via Natural or Artificial Opening (ICD-10-PCS; 2016-11-26)
DX: K59.00 Constipation, unspecified (principal); K56.7 Ileus, unspecified; Z68.1 Body mass index [BMI] 19.9 or less, adult; R53.81 Other malaise; M19.90 Unspecified osteoarthritis, unspecified site; Z79.891 Long term (current) use of opiate analgesic; Z95.0 Presence of cardiac pacemaker; K21.9 Gastro-esophageal reflux disease without esophagitis; F41.8 Other specified anxiety disorders; G62.9 Polyneuropathy, unspecified; Z82.49 Family history of ischemic heart disease and other diseases of the circulatory system; Z79.82 Long term (current) use of aspirin; E87.5 Hyperkalemia
CPT/HCPCS: 36415; 74020; 74020-26; 74176; 74176-26; 80048; 80053; 81001; 82150; 83690; 83735; 85025; 93005; 96361; 96374; 96375; 96376; 97161-GP; 97802; 99285; 99285-25; A9270-GY; C9113; J0744; J1170; J1644; J2270; J2405; J2765; J3475; J3480; J7030; J7040

== ENCOUNTER 2017-09-04 15:10 | Emergency (ER) | payer MEDICARE, BC ==
--- NOTE | 2017-09-04 15:52 | EDM.PDOC ---
ED HPI GENERAL MEDICAL PROBLEM - General Chief Complaint: Lower Extremity Injury/Pain Stated Complaint: HIP PAIN RIGHT SIDE Time Seen by Provider: 09/04/17 15:51 Source of Information: Reports: Patient - History of Present Illness INITIAL COMMENTS - FREE TEXT/NARRATIVE: HISTORY AND PHYSICAL: History of present illness: [Frail-appearing 87-year-old female presents with right hip pain, she is had told hip replacement in early she is on hydrocodone scheduled by her primary doctor rule, complaints of pain unable to sleep at night due to pain at current she exhibits no pain behaviors no fever nausea vomiting chills sweats no chest pain shortness breath headache dizziness palpitation about a urine symptoms Generally able to ambulate with a walker ] Review of systems: As per history of present illness and below otherwise all systems reviewed and negative. Past medical history: As per history of present illness and as reviewed below otherwise noncontributory. Surgical history: As per history of present illness and as reviewed below otherwise noncontributory. Social history: No reported history of drug or alcohol abuse. Family history: As per history of present illness and as reviewed below otherwise noncontributory. Physical exam: HEENT: Atraumatic, normocephalic, pupils reactive, negative for conjunctival pallor or scleral icterus, mucous membranes moist, throat clear, neck supple, nontender, trachea midline. Lungs: Clear to auscultation, breath sounds equal bilaterally, chest nontender. Heart: S1S2, regular, negative for clicks, rubs, or JVD. Abdomen: Soft, nondistended, nontender. Negative for masses or hepatosplenomegaly. Negative for costovertebral tenderness. Pelvis: Stable nontender. Genitourinary: Deferred. Rectal: Deferred. Extremities: Atraumatic, negative for cords or calf pain. Neurovascular unremarkable. Neuro: Awake, alert, oriented. Cranial nerves II through XII unremarkable. Cerebellum unremarkable. Motor and sensory unremarkable throughout. Exam nonfocal. Right lower extremity hip and knee ankle appear unaffected is full range of motion of the knee and ankle without pain. Flexion of the hip reproduces pain and can reproduce pain palpating along her hamstring some I can appreciate that there is significant spasm of the hamstrings on the right and can reproduce pain easily entire limb is neurovascularly intact joints are intact no redness swelling or inflammation Diagnostics: [Pelvis and right hip ] Therapeutics: [Patient on hydrocodone continue medication as directed Follow-up with primary care provider next week sooner as needed ] Flexeril 5 mg by mouth 3 times a day when necessary #30 no refill Heat ice whichever provides most been a benefit 20 minutes 3 times daily Warm water bath or pool bath baby improved symptoms Impression: Muscle spasm [Right hip pain History total right hip replacement ] Definitive disposition and diagnosis as appropriate pending reevaluation and review of above. Treatments LAB HEAD: Reports: Other Medication(s) Other Treatments LAB HEAD: takes narcotic pain medications. Right Hip Pain Score (Numeric/FACES): 7 - Related Data Allergies Allergy/AdvReac Type Severity Reaction Status Date / Time adhesive tape Allergy Rash Verified 09/04/17 15:37 Latex, Natural Rubber Allergy Rash Verified 11/25/16 22:18 Home Meds: Home Meds Gabapentin [Neurontin] 100 mg PO BID 09/15/14 [History] Hydrocodone/Acetaminophen [Lortab 5-325 mg Tablet] 7.5 - 325 mg PO Q6H PRN 09/15 [History] Acetaminophen [Tylenol] 650 mg PO Q4H PRN #0 tablet 03/23/16 [Rx] Metoprolol Succinate [Toprol XL] 25 mg PO DAILY 11/25/16 [History] Docusate Sodium [Colace] 100 mg PO BID #60 cap 12/01/16 [Rx] Sertraline [Zoloft] 50 mg PO DAILY #60 tablet 12/01/16 [Rx] Gabapentin [Neurontin] 100 mg PO BEDTIME 09/04/17 [History] Past Medical History HEENT History: Reports: Hard of Hearing, Other (See Below) Other HEENT History: Dry Eye Cardiovascular History: Reports: Pacemaker Respiratory History: Reports: None Gastrointestinal History: Reports: Other (See Below) Other Gastrointestinal History: was admitted in November of this year for stomach issues, in for about a week. FINANCE INTERN History: Reports: Musculoskeletal History: Reports: Osteoarthritis, RA Neurological History: Reports: Neuropathy, Peripheral Psychiatric History: Reports: Anxiety, Depression Endocrine/Metabolic History: Reports: None Hematologic History: Reports: None Immunologic History: Reports: None Oncologic (Cancer) History: Reports: Other (See Below) Other Oncologic History: skin biopsy forehead Tues which pt states was cancer. Dermatologic History: Reports: Other (See Below) Other Dermatologic History: just had skin biopsy forehead on Tues with DR. Chew , informed she had cancer. - Infectious Disease History Infectious Disease History: Reports: Chicken Pox, Influenza, Measles - Past Surgical History Head Surgeries/Procedures: Reports: None Cardiovascular Surgical History: Reports: Other (See Below) GI Surgical History: Reports: Appendectomy Musculoskeletal Surgical History: Reports: Hip Replacement, Other (See Below) Dermatological Surgical History: Reports: Skin Biopsy Social & Family History - Family History Family Medical History: Noncontributory HEENT: Reports: Impaired Vision Cardiac: Reports: [place] Oncologic: Reports: Colon - Tobacco Use Smoking Status *Q: Never Smoker Second Hand Smoke Exposure: No - Caffeine Use Caffeine Use: Reports: Coffee - Alcohol Use Days Per Week of Alcohol Use: 0 - Recreational Drug Use Recreational Drug Use: No Review of Systems - Review of Systems Review Of Systems: ROS reveals no pertinent complaints other than HPI. ED EXAM, GENERAL - Physical Exam Exam: See Below Course - Vital Signs Last Recorded V/S: Last Vital Signs Temp 97.3 F 09/04/17 15:37 Pulse 88 09/04/17 15:37 Resp 16 09/04/17 15:37 BP 124/63 09/04/17 15:37 Pulse Ox 96 09/04/17 15:37 - Orders/Labs/Meds Orders: Active Orders 24 hr Category Date Time Status Hip Min 2V or 3V w Pelvis Rt [CR] Stat Exams 09/04/17 15:50 Taken Departure - Departure Time of Disposition: 17:07 Disposition: Home, Self-Care 01 Condition: Good Clinical Impression: Muscle spasm - Discharge Information Referrals: Leopoldo Barnes MD [Primary Care Provider] - Forms: ED Department Discharge Additional Instructions: Medication as prescribed Continue current home medications There ice which ever begins most benefit 20 minute intervals 3 times daily With primary care in 2 weeks sooner as needed Return if symptoms persist or worsen [address] [address] The following information is given to patients seen in the emergency department who are being discharged to home. This information is to outline your options for follow-up care. We provide all patients seen in our emergency department with a follow-up referral. The need for follow-up, as well as the timing and circumstances, are variable depending upon the specifics of your emergency department visit. If you don't have a primary care physician on staff, we will provide you with a referral. We always advise you to contact your personal physician following an emergency department visit to inform them of the circumstance of the visit and for follow-up with them and/or the need for any referrals to a consulting specialist. The emergency department will also refer you to a specialist when appropriate. This referral assures that you have the opportunity for follow-up care with a specialist. All of these measure are taken in an effort to provide you with optimal care, which includes your follow-up. Under all circumstances we always encourage you to contact your private physician who remains a resource for coordinating your care. When calling for follow-up care, please make the office aware that this follow-up is from your recent emergency room visit. If for any reason you are refused follow-up, please contact the [facility] emergency department at and asked to speak to the emergency department charge nurse. - My Orders Last 24 Hours: My Active Orders 09/04/17 15:50 Hip Min 2V or 3V w Pelvis Rt [CR] Stat - Assessment/Plan Last 24 Hours: My Active Orders 09/04/17 15:50 Hip Min 2V or 3V w Pelvis Rt [CR] Stat
[2017-09-04 17:36] VITALS: BP 129/65
--- NOTE | 2017-09-06 14:15 | CR ---
EXAM DATE: 09/04/17 PATIENT'S AGE: 87 Patient: FATEMEH ABRAMS Facility: [place], [place] Site . Site : 1930 Study: XRay Hip Right [id number] 4:22:51 PM Ordering Physician: Maryana Mcnulty Final Report: Indication: Right hip pain. Previous right hip replacement in 1989. Technique: AP pelvis and 2 views of the right hip. Findings: Right hip arthroplasty. The components are adequately aligned and well seated. There is no convincing evidence for loosening on these plain radiographs. There is clearly skeletal demineralization. Advanced degenerative arthritis of the left hip. Degenerative arthritis of the lower lumbar spine. Impression: 1. Right hip arthroplasty. The components are adequately aligned and well seated. 2. Diffuse skeletal demineralization. 3. 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 Dictated by Edmund Degroot MD @ Sep 04 2017 4:48PM (Electronic Signature) Report Signed by Proxy. RICARDO
== END 2017-09-04 17:34 | disposition home or self-care (01) ==
LOC: MW.ED 15:10
DX: M62.838 Other muscle spasm (principal); M25.551 Pain in right hip; Z91.040 Latex allergy status; Z79.899 Other long term (current) drug therapy; Z96.649 Presence of unspecified artificial hip joint
CPT/HCPCS: 73502-26-RT; 73502-RT; 99283; 99284